=== PATIENT | male | born 1980 | race Caucasian/White ===

== ENCOUNTER 2019-05-20 17:52 | Emergency (ER) | payer OTHER ==
[~2019-05-20] VITALS: Ht 177.8 cm; Wt 96.6 kg
== END 2019-05-20 18:27 | disposition home or self-care (01) ==
LOC: ED 17:52
DX: B34.9 Viral infection, unspecified (principal); F17.200 Nicotine dependence, unspecified, uncomplicated; Z88.0 Allergy status to penicillin
CPT/HCPCS: 99283

== ENCOUNTER 2022-06-07 08:00 | Day surgery (SDC) | payer OTHER ==
[2022-06-01 10:25] VITALS: BP 133/92
[~2022-06-07] VITALS: Ht 177.8 cm; Wt 104.5 kg
[~2022-06-07 08:00] MED LIST: BACLOFEN10 MG PO; CIALIS2.5 MG PO; FLOMAX0.4 MG PO; GABAPENTIN300 MG PO; GILENYA0.5 MG PO
[2022-06-07 08:19] VITALS: BP 129/78
--- NOTE | 2022-06-07 10:37 | NUR ---
06/07/22 1037 Sheets,Mayi 1026 PT ARRIVED TO PACU SNORING AND JAW THRUST USED OFF AND ON TO MAINTAIN AIRWAY. PT NONAROUSABLE. 1033 PT WAKES TO PAINFUL STIMULI AND ROLLS TO SIDE. HOB INCREASED AND SNORING DECREASED. PT REPORTS 2/10 PAIN AND NO NAUSEA. PT EASILY FALLS BACK TO SLEEP. 1035 PT WAKES AND IS REORIENTED TO PACU AND DENIES CONCERNS.
[2022-06-07 10:47] VITALS: BP 118/73
--- NOTE | 2022-06-07 10:58 | NUR ---
1045-PATIENT BACK TO ROOM FROM PACU ON . RECEIVED REPORT FROM ROJELIO ZHU. PATIENT IS AWAKE. RESP EVEN AND UNLABORED. RATES PAIN 2/10. DENIES NAUSEA. COTTON BALLS ARE IN BOTH EARS NO DRAINAGE NOTED. PROVIDED PATIENT WITH WATER AND APPLESAUCE. FAMILY IN ROOM. CALL LIGHT WITHIN REACH.
[2022-06-07 11:48] VITALS: BP 117/67
--- NOTE | 2022-06-07 11:57 | NUR ---
LE 1112-PATIENT UP TO RESTROOM. GAIT STEADY TOLERATED WELL. PATIENT VOIDS. LE 1115-PATIENT AMBULATES BACK TO ROOM. PROVIDED PATEIENT WITH MORE WATER.
--- NOTE | 2022-06-07 11:59 | NUR ---
LE 1130-PATIENT GETTING DRESSED.
--- NOTE | 2022-06-07 11:59 | NUR ---
LE 1148-PATIENT AWAKE AND DRESSED SITTING IN BED WATCHING TV. RESP EVEN AND UNALABORED. RATES PAIN /. DENIES NAUSEA. NO DRAINAGE NOTED IN EARS. LE 1152-PROVIDED PATIENT WITH DISCHARGE INSTRUCTIONS. ALL QUESTIONS ANSWERED. WHEELCHAIR RIDE PROVIED TO FRONT OF HOSPITAL WHERE HIS MOTHER WAS WAITING WITH THE CAR.
--- NOTE | 2022-06-14 10:12 | OR ---
[facility] [address], [place] [address] Signed DATE OF OPERATION: 06/07/2022 SURGEON: Daren Redman MD PREOPERATIVE DIAGNOSES: Chronic ear infections, conductive hearing loss, middle ear effusions, tympanosclerosis. POSTOPERATIVE DIAGNOSES: Chronic ear infections, conductive hearing loss, middle ear effusions, tympanosclerosis. PROCEDURE: Bilateral myringotomy and ventilation tube insertion with T tubes. ANESTHESIA: General LMA, POLICE SERVICE TECHNICIAN, Mic. PREOPERATIVE HISTORY: Patrice is a 42-year-old young man with chronic ear infections, multiple sets of ear tubes, none for several years. He has appearance of extensive tympanosclerosis, conductive hearing loss, flat tympanograms, suspicion of middle ear effusion, and he is taken to the operating room for the above-mentioned procedures. OPERATIVE PROCEDURE AND FINDINGS: After informed consent, the patient was taken to the operating room, placed in the supine position where general LMA anesthesia was induced. The patient and procedure were verified. Left ear was examined with the operating microscope. The eardrum was tip extensively tympanosclerotic with an anterior-inferior monomeric membrane. This incision was made through the anterior portion of the monomeric membrane. A scant serous effusion suctioned from the middle ear space. A T-tube placed in the myringotomy site. Cipro ophthalmic drops applied to the ear canal, cotton ball the meatus. Same procedure, same findings on the right ear. The patient tolerated the procedure well, was awakened, extubated, transported to recovery room in good condition. No complications. BLOOD LOSS: Minimal. SPECIMEN: None. Electronically Signed By: DAREN REDMAN MD 06/14/22 1012 PATIENT NAME: PATRICE SKAGGS OPERATIVE REPORT DATE OF : 84 REPORT #: [id number] PHYSICIAN: DAREN REDMAN MD PCP: MAUREEN VELARDE MD REPORT IS CONFIDENTIAL AND NOT TO BE RELEASED WITHOUT AUTHORIZATION [address] [place] [address] Signed DRAINS: None. Daren Redman MD GC/MODL /[id number] Copies: ~ Electronically Signed By: DAREN REDMAN MD 06/14/22 1012 PATIENT NAME: PATRICE SKAGGS OPERATIVE REPORT DATE OF : 84 REPORT #: [id number] PHYSICIAN: DAREN REDMAN MD PCP: MAUREEN VELARDE MD REPORT IS CONFIDENTIAL AND NOT TO BE RELEASED WITHOUT AUTHORIZATION
== END 2022-06-07 11:52 | disposition home or self-care (01) ==
LOC: DS 08:00 → OPS 08:00 → DS 09:30 → OPS 09:30
PROVIDERS: ATTEND Otolaryngology
PROC: 099500Z Drainage of Right Middle Ear with Drainage Device, Open Approach (ICD-10-PCS; 2022-06-07)
PROC: 099600Z Drainage of Left Middle Ear with Drainage Device, Open Approach (ICD-10-PCS; principal; 2022-06-07 09:30)
DX: H65.23 Chronic serous otitis media, bilateral (principal); H90.2 Conductive hearing loss, unspecified; H74.03 Tympanosclerosis, bilateral; Z88.8 Allergy status to other drugs, medicaments and biological substances
CPT/HCPCS: 00126; J0131; J1885; J2001; J2405; J2704; J3010; J7121

== ENCOUNTER 2022-10-26 13:13 | Emergency (ER) | payer OTHER ==
[~2022-10-26] VITALS: Ht 177.8 cm; Wt 104.5 kg
--- OUTSIDE RECORDS SUMMARY | ~2022-10-26 | XMS | Continuity of Care Document ---
Demographics + + + | Address | [address] | | | [place] [address] | + + + | Preferred Language | Unknown | + + + | Marital Status | Never | + + + | Confucianism Affiliation | Unknown | + + + | Race | Unknown | + + + | Ethnic Group | Unknown | + + + Author + + + | Author | [facility] | + + + | Organization | [facility] | + + + | Address | [address] | | | [place] [address] | + + + | Phone | | + + + Care Team Providers + + + + | [facility] Name | Role | Phone | + + + + Unavailable | Unavailable | + + + + Unavailable | Unavailable | + + + + Unavailable | Unavailable | + + + + Unavailable | Unavailable | + + + + Unavailable | Unavailable | + + + + Unavailable | Unavailable | + + + + Allergies and Intolerances + + + + + + | date | description | facility | reaction | severity | + + + + + + | (no date) | Rituxan 10 | [facility] | (no reaction) | (no severity) | | | MG/ML | [facility] | | | | | Intravenous | | | | | | Concentrate | | | | + + + + + + | (no date) | Penicillin | [facility] | (no reaction) | (no severity) | | [facility] | | | + + + + + + | (no date) | Penicillin | [facility] | (no reaction) | (no severity) | | [facility] | | | + + + + + + | (no date) | Miscellaneous | [facility] | (no reaction) | (no severity) | | | Oral Tablet | [facility] | | | + + + + + + | (no date) | Penicillin | [facility] | (no reaction) | (no severity) | | | [facility] | | | + + + + + + | (no date) | NO ALLERGY | [facility] | (no reaction) | (no severity) | | | INFORMATION ON | [facility] Center | | | | | FILE | Hospital | | | + + + + + + | (no date) | NATALIZUMAB | [facility] | (no reaction) | (no severity) | | | | [facility] | | | | | | Hospital | | | + + + + + + | (no date) | NO KNOWN | [facility] | (no reaction) | (no severity) | | | ALLERGIES | [facility] | | | | | | Hospital | | | + + + + + + | (no date) | Penicillin | [facility] | (no reaction) | (no severity) | | | [facility] | | | + + + + + + Encounters No information. Functional Status No information. Immunizations No information. Medications + + + + | date | description | facility | + + + + | 2022-06-07 00:00 | FINGOLIMOD HCL | [facility] | + + + + | 2021-06-24 00:00 | fingolimod 0.5 MG Oral | [facility] | | | Capsule [Gilenya] | | + + + + | 2021-12-14 00:00 | fingolimod 0.5 MG Oral | [facility] | | | Capsule [[facility]ya] | | + + + + | 2022-01-10 00:00 | fingolimod 0.5 MG Oral | [facility] | | | Capsule [[facility]] | | + + + + | 2022-02-14 00:00 | fingolimod 0.5 MG Oral | [facility] | | | Capsule [[facility]ya] | | + + + + | 2022-03-28 00:00 | fingolimod 0.5 MG Oral | [facility] | | | Capsule [[facility]ya] | | + + + + | 2022-04-21 00:00 | fingolimod 0.5 MG Oral | [facility] | | | Capsule [[facility]enya] | | + + + + | 2021-06-14 00:00 | Tamsulosin HCl 0.4 MG Oral | [facility] | | | Capsule | | + + + + | 2021-07-02 00:00 | Tamsulosin HCl 0.4 MG Oral | [facility] | | | Capsule | | + + + + | 2021-07-08 00:00 | Tamsulosin HCl 0.4 MG Oral | [facility] | | | Capsule | | + + + + | 2022-01-10 00:00 | Tamsulosin HCl 0.4 MG Oral | [facility] | | | Capsule | | + + + + | 2022-07-04 00:00 | Tamsulosin HCl 0.4 MG Oral | [facility] | | | Capsule | | + + + + | 2021-06-24 00:00 | Gilenya 0.5 MG Oral | [facility] | | | Capsule | | + + + + | 2021-12-14 00:00 | Gilenya 0.5 MG Oral | [facility] | | | Capsule | | + + + + | 2022-01-10 00:00 | Gilenya 0.5 MG Oral | [facility] | | | Capsule | | + + + + | 2022-02-14 00:00 | Gilenya 0.5 MG Oral | [facility] | | | Capsule | | + + + + | 2022-03-28 00:00 | Gilenya 0.5 MG Oral | [facility] | | | Capsule | | + + + + | 2022-04-21 00:00 | Gilenya 0.5 MG Oral | [facility] | | | Capsule | | + + + + | 2020-03-03 00:00 | methylprednisolone 1000 mg | [facility] | | | injection | [facility] | + + + + | 2020-03-03 00:00 | solu-medrol 1 gm injection | [facility] | | | | [facility] | + + + + | 2020-04-21 00:00 | 1000 ml sodium chloride 9 | [facility] | | | mg/ml injection | | + + + + | 2020-05-19 00:00 | 1000 ml sodium chloride 9 | [facility] | | | mg/ml injection | | + + + + | 2022-06-07 00:00 | BACLOFEN | [facility] | + + + + | 2022-04-21 00:00 | baclofen 10 MG Oral Tablet | [facility] | | | | | + + + + | 2022-04-21 00:00 | Baclofen 10 MG Oral Tablet | [facility] | | | | | + + + + | 2022-06-07 00:00 | GABAPENTIN | [facility] | + + + + | 2021-07-02 00:00 | gabapentin 300 MG Oral | [facility] | | | Capsule | | + + + + | 2022-05-31 00:00 | gabapentin 300 MG Oral | [facility] | | | Capsule | | + + + + | 2021-07-02 00:00 | Gabapentin 300 MG Oral | [facility] | | | Capsule | | + + + + | 2022-05-31 00:00 | Gabapentin 300 MG Oral | [facility] | | | Capsule | | + + + + | 2020-01-21 00:00 | natalizumab 300 mg in 15 | [facility] | | | ml injection | | + + + + | 2020-01-21 00:00 | natalizumab 300 mg in 15 | [facility] | | | ml injection | | + + + + | 2020-01-21 00:00 | natalizumab 300 mg in 15 | [facility] | | | ml injection | [facility] | + + + + | 2020-01-21 00:00 | tysabri 300 mg per 15 ml | [facility] | | | injection | | + + + + | 2020-01-21 00:00 | tysabri 300 mg per 15 ml | [facility] | | | injection | | + + + + | 2020-01-21 00:00 | tysabri 300 mg per 15 ml | [facility] | | | injection | [facility] | + + + + | 2022-06-07 00:00 | TADALAFIL | [facility] | + + + + | 2021-06-14 00:00 | tamsulosin hydrochloride | [facility] | | | 0.4 MG Oral Capsule | | + + + + | 2021-07-02 00:00 | tamsulosin hydrochloride | [facility] | | | 0.4 MG Oral Capsule | | + + + + | 2021-07-08 00:00 | tamsulosin hydrochloride | [facility] | | | 0.4 MG Oral Capsule | | + + + + | 2022-01-10 00:00 | tamsulosin hydrochloride | [facility] | | | 0.4 MG Oral Capsule | | + + + + | 2022-07-04 00:00 | tamsulosin hydrochloride | [facility] | | | 0.4 MG Oral Capsule | | + + + + | 2022-06-07 00:00 | TAMSULOSIN HCL | [facility] | + + + + Problems + + + + | date | description | facility | + + + + | 2020-01-22 00:00 | multiple sclerosis | [facility] | | | (disorder) | | + + + + | 2020-01-22 00:00 | multiple sclerosis | [facility] | | | (disorder) | | + + + + | 2020-01-22 00:00 | multiple sclerosis | [facility] | | | (disorder) | [facility] | + + + + | 2020-01-22 00:00 | Multiple sclerosis | [facility] | + + + + | 2020-01-22 00:00 | Multiple sclerosis | [facility] | | | | | + + + + | 2020-01-22 00:00 | Multiple sclerosis | [facility] | | | | [facility] | + + + + | 2020-03-03 10:47:29 | Demyelinating diseases of | [facility] | | | the central nervous system | [facility] | | | (G35-G37) | | + + + + | 2020-03-03 10:47:29 | Hemiplegia, unspecified | [facility] | | | affecting left nondominant | [facility] | | | side | | + + + + | 2020-03-03 10:47:29 | Pain in right leg | [facility] | | | | [facility] | + + + + | 2020-03-03 10:47:29 | Pain in left leg | [facility] | | | | [facility] | + + + + | 2020-03-03 10:47:29 | Anesthesia of skin | [facility] | | | | [facility] | + + + + | 2020-03-03 10:47:29 | Paresthesia of skin | [facility] | | | | [facility] | + + + + | 2020-03-23 12:58:32 | Demyelinating diseases of | [facility] | | | the central nervous system | [facility] | | | (G35-G37) | | + + + + | 2020-04-21 00:00 | Demyelinating diseases of | [facility] | | | the central nervous system | [facility] | | | (G35-G37) | | + + + + | 2020-04-21 10:52:59 | Demyelinating diseases of | [facility] | | | the central nervous system | [facility] | | | (G35-G37) | | + + + + | 2020-05-19 12:18:47 | Demyelinating diseases of | [facility] | | | the central nervous system | [facility] | | | (G35-G37) | | + + + + | 2020-06-16 12:09:46 | Demyelinating diseases of | [facility] | | | the central nervous system | [facility] | | | (G35-G37) | | + + + + | 2020-07-14 12:19:49 | Demyelinating diseases of | [facility] | | | the central nervous system | [facility] | | | (G35-G37) | | + + + + | 2020-07-28 13:29:53 | Vitamin D deficiency, | [facility] | | | unspecified | [facility] | + + + + | 2020-07-28 13:29:53 | Demyelinating diseases of | [facility] | | | the central nervous system | [facility] | | | (G35-G37) | | + + + + | 2020-07-28 13:29:53 | Pain in unspecified joint | [facility] | | | | [facility] | + + + + | 2020-07-28 13:29:53 | Anesthesia of skin | [facility] | | | | [facility] | + + + + | 2020-07-28 13:29:53 | Paresthesia of skin | [facility] | | | | [facility] | + + + + | 2020-07-28 13:29:53 | Other fatigue | [facility] | | | | [facility] | + + + + | 2020-07-28 13:29:53 | Encounter for therapeutic | [facility] | | | drug level monitoring | [facility] | + + + + | 2020-07-28 13:29:53 | 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 | | | (disorder) | | + + + + | 2021-07-02 00:00 | MULTIPLE SCLEROSIS | [facility] | | | | | + + + + | 2021-07-02 00:00 | Multiple Sclerosis | [facility] | | | | | + + + + | 2022-06-07 08:00 | ACUTE SEROUS OTITIS MEDIA, | [facility] | | | BILATERAL | | + + + + | 2022-06-07 08:00 | CHRONIC SEROUS OTITIS | [facility] | | | MEDIA, BILATERAL | | + + + + | 2022-06-07 08:00 | TYMPANOSCLEROSIS, | [facility] | | | BILATERAL | | + + + + | 2022-06-07 08:00 | CONDUCTIVE HEARING LOSS, | [facility] | | | UNSPECIFIED | | + + + + | 2022-06-07 08:00 | ALLERGY STATUS TO OTH | [facility] | | | DRUG/MEDS/BIOL SUBST STATUS | | | | | | + + + + Procedures + + + + | date | description | facility | + + + + | 2020-04-21 00:00 | GUIDELINES FOR ORDERING #1 | [facility] | | | - [facility] | | + + + + | 2020-05-19 00:00 | GUIDELINES FOR ORDERING #1 | [facility] | | | - [facility] | | + + + + | 2020-04-21 00:00 | NURSING COMMUNICATION #2 - | [facility] | | | [facility] | | + + + + | 2020-05-19 00:00 | NURSING COMMUNICATION #2 - | [facility] | | | [facility] | | + + + + | 2020-04-21 00:00 | NURSING COMMUNICATION #3 - | [facility] | | | [facility] | | + + + + | 2020-05-19 00:00 | NURSING COMMUNICATION #3 - | [facility] | | | [facility] | | + + + + | 2020-04-21 00:00 | NURSING COMMUNICATION #4 - | [facility] | | | [facility] | | + + + + | 2020-05-19 00:00 | NURSING COMMUNICATION #4 - | [facility] | | | [facility] | | + + + + | 2020-04-21 00:00 | NURSING COMMUNICATION #5 - | [facility] | | | [facility] | | + + + + | 2020-05-19 00:00 | NURSING COMMUNICATION #5 - | [facility] | | | [facility] | | + + + + | 2020-04-21 00:00 | BASIC METABOLIC SET (NA, | [facility] | | | K, CL, TCO2, BUN, CR, GLU, | | | | CA) | | + + + + | 2020-05-19 00:00 | BASIC METABOLIC SET (NA, | [facility] | | | K, CL, TCO2, BUN, CR, GLU, | | | | CA) | | + + + + | 2020-04-21 00:00 | CBC WITH AUTO DIFF - OLP | [facility] | + + + + | 2020-05-19 00:00 | CBC WITH AUTO DIFF - OLP | [facility] | + + + + | 2020-04-21 00:00 | BASIC METABOLIC SET - OLP | [facility] | + + + + | 2020-05-19 00:00 | BASIC METABOLIC SET - OLP | [facility] | + + + + | 2020-04-21 00:00 | CBC W/ DIFF, REFLEX | [facility] | + + + + | 2020-05-19 00:00 | CBC W/ DIFF, REFLEX | [facility] | + + + + | 2020-04-21 00:00 | NURSING COMMUNICATION - | [facility] | | | HYPERSENSITIVITY/INFUSION | | | | REACTION #5 - [facility] | | + + + + | 2020-05-19 00:00 | NURSING COMMUNICATION - | [facility] | | | HYPERSENSITIVITY/INFUSION | | | | REACTION #5 - [facility] | | + + + + Results/Labs +--------+--------+ +---------+--------+---------+ | test | date | facility | value | unit | notes | +--------+--------+ +---------+--------+---------+ + + | Result panel 1 | + + + + + + + + + | No Results | (no date) | [facility] | No Results | (missing) | (missing) | [facility] | | | | + + + + + + + + + | Result panel 2 | + + + + + + + + + | No Results | (no date) | [facility] | No Results | (missing) | (missing) | | | [facility] | | | | | [facility] | | | | + + + + + + + + + | Result panel 3 | + + + + + + + + + | No Results | (no date) | [facility] | No Results | (missing) | (missing) | | [facility] | | | [facility] | | | | + + + + + + + + + | Result panel 4 | + + + + + + + + + | No Results | (no date) | [facility] | No Results | (missing) | (missing) | | | | [facility] | | | | | | | [facility] [place] | | | | + + + + + + + + + | Result panel 5 | + + + + + + + + + | Specimen | (no date) | [facility] | (missing) | (missing) | (missing) | | collection | | Cancer | | | | | (procedure) | | Center | | | | + + + + + + + + + | Result panel 6 | + + + + + + + + + | Specimen | (no date) | [facility] | (missing) | (missing) | (missing) | | collection | | Cancer | | | | | (procedure) | | Center | | | | + + + + + + + + + | Result panel 7 | + + + + + + + + + | Specimen | (no date) | [facility] | (missing) | (missing) | (missing) | | collection | | Cancer | | | | | (procedure) | | Center | | | | + + + + + + + + + | Result panel 8 | + + + + + + + + + | Specimen | (no date) | [facility] | (missing) | (missing) | (missing) | | collection | | Cancer | | | | | (procedure) | | Center | | | | + + + + + + + + + | Result panel 9 | + + + + + +--------+ + + | | 2020-04-21 | [facility] | 0.05 | (missing) | (missing) | | (unavailable | 20:35 | Cancer | | | | | ) | | Center | | | | + + + +--------+ + + + + | Result panel 10 | + + + + + +--------+ + + | | 2020-04-21 | [facility] | 0.03 | (missing) | (missing) | | (unavailable | 20:35 | Cancer | | | | | ) | | Center | | | | + + + +--------+ + + + + | Result panel 11 | + + + + + + + + + | | 2020-04-21 | [facility] | Abnormal | (missing) | (missing) | | (unavailable | 20:35 | Cancer | | | | | ) | | Center | | | | + + + + + + + + + | Result panel 12 | + + + + + +--------+ + + | | 2020-04-21 | [facility] | 6.48 | (missing) | (missing) | | (unavailable | 20:35 | Cancer | | | | | ) | | Center | | | | + + + +--------+ + + + + | Result panel 13 | + + + + + +--------+ + + | | 2020-04-21 | [facility] | 5.39 | (missing) | (missing) | | (unavailable | 20:35 | Cancer | | | | | ) | | Center | | | | + + + +--------+ + + + + | Result panel 14 | + + + + + +--------+--------+ + | | 2020-04-21 | [facility] | 16.1 | g/dL | (missing) | | (unavailable | 20:35 | Cancer | | | | | ) | | Center | | | | + + + +--------+--------+ + + + | Result panel 15 | + + + + + +--------+-----+ + | | 2020-04-21 | [facility] | 46.8 | % | (missing) | | (unavailable | 20:35 | Cancer | | | | | ) | | Center | | | | + + + +--------+-----+ + + + | Result panel 16 | + + + + + +--------+------+ + | | 2020-04-21 | [facility] | 86.8 | fL | (missing) | | (unavailable | 20:35 | Cancer | | | | | ) | | Center | | | | + + + +--------+------+ + + + | Result panel 17 | + + + + + +--------+------+ + | | 2020-04-21 | [facility] | 29.9 | pg | (missing) | | (unavailable | 20:35 | Cancer | | | | | ) | | Center | | | | + + + +--------+------+ + + + | Result panel 18 | + + + + + +--------+--------+ + | | 2020-04-21 | [facility] | 34.4 | g/dL | (missing) | | (unavailable | 20:35 | Cancer | | | | | ) | | Center | | | | + + + +--------+--------+ + + + | Result panel 19 | + + + + + +--------+-----+ + | | 2020-04-21 | [facility] | 12.7 | % | (missing) | | (unavailable | 20:35 | Cancer | | | | | ) | | Center | | | | + + + +--------+-----+ + + + | Result panel 20 | + + + + + +-------+ + + | | 2020-04-21 | [facility] | 211 | (missing) | (missing) | | (unavailable | 20:35 | Cancer | | | | | ) | | Center | | | | + + + +-------+ + + + + | Result panel 21 | + + + + + +--------+------+ + | | 2020-04-21 | [facility] | 12.1 | fL | (missing) | | (unavailable | 20:35 | Cancer | | | | | ) | | Center | | | | + + + +--------+------+ + + + | Result panel 22 | + + + + + +-------+-----+ + | | 2020-04-21 | [facility] | 0.0 | % | (missing) | | (unavailable | 20:35 | Cancer | | | | | ) | | Center | | | | + + + +-------+-----+ + + + | Result panel 23 | + + + + + +--------+ + + | | 2020-04-21 | [facility] | 0.00 | (missing) | (missing) | | (unavailable | 20:35 | Cancer | | | | | ) | | Center | | | | + + + +--------+ + + + + | Result panel 24 | + + + + + +--------+-----+ + | | 2020-04-21 | [facility] | 64.3 | % | (missing) | | (unavailable | 20:35 | Cancer | | | | | ) | | Center | | | | + + + +--------+-----+ + + + | Result panel 25 | + + + + + +--------+-----+ + | | 2020-04-21 | [facility] | 24.2 | % | (missing) | | (unavailable | 20:35 | Cancer | | | | | ) | | Center | | | | + + + +--------+-----+ + + + | Result panel 26 | + + + + + +-------+-----+ + | | 2020-04-21 | [facility] | 8.0 | % | (missing) | | (unavailable | 20:35 | Cancer | | | | | ) | | Center | | | | + + + +-------+-----+ + + + | Result panel 27 | + + + + + +-------+-----+ + | | 2020-04-21 | [facility] | 2.2 | % | (missing) | | (unavailable | 20:35 | Cancer | | | | | ) | | Center | | | | + + + +-------+-----+ + + + | Result panel 28 | + + + + + +-------+-----+ + | | 2020-04-21 | [facility] | 0.8 | % | (missing) | | (unavailable | 20:35 | Cancer | | | | | ) | | Center | | | | + + + +-------+-----+ + + + | Result panel 29 | + + + + + +-------+-----+ + | | 2020-04-21 | [facility] | 0.5 | % | (missing) | | (unavailable | 20:35 | Cancer | | | | | ) | | Center | | | | + + + +-------+-----+ + + + | Result panel 30 | + + + + + +--------+ + + | | 2020-04-21 | [facility] | 4.17 | (missing) | (missing) | | (unavailable | 20:35 | Cancer | | | | | ) | | Center | | | | + + + +--------+ + + + + | Result panel 31 | + + + + + +--------+ + + | | 2020-04-21 | [facility] | 1.57 | (missing) | (missing) | | (unavailable | 20:35 | Cancer | | | | | ) | | Center | | | | + + + +--------+ + + + + | Result panel 32 | + + + + + +--------+ + + | | 2020-04-21 | [facility] | 0.52 | (missing) | (missing) | | (unavailable | 20:35 | Cancer | | | | | ) | | Center | | | | + + + +--------+ + + + + | Result panel 33 | + + + + + +--------+ + + | | 2020-04-21 | [facility] | 0.14 | (missing) | (missing) | | (unavailable | 20:35 | Cancer | | | | | ) | | Center | | | | + + + +--------+ + + + + | Result panel 34 | + + + + + +-------+---------+ + | | 2020-04-21 | [facility] | 106 | mg/dL | (missing) | | (unavailable | 20:48 | Cancer | | | | | ) | | Center | | | | + + + +-------+---------+ + + + | Result panel 35 | + + + + + +------+---------+ + | | 2020-04-21 | [facility] | 10 | mg/dL | (missing) | | (unavailable | 20:48 | Cancer | | | | | ) | | Center | | | | + + + +------+---------+ + + + | Result panel 36 | + + + + + +-------+---------+ + | | 2020-04-21 | [facility] | 0.7 | mg/dL | (missing) | | (unavailable | 20:48 | Cancer | | | | | ) | | Center | | | | + + + +-------+---------+ + + + | Result panel 37 | + + + + + +-------+ + + | | 2020-04-21 | [facility] | 143 | mmol/L | (missing) | | (unavailable | 20:48 | Cancer | | | | | ) | | Center | | | | + + + +-------+ + + + + | Result panel 38 | + + + + + +-------+ + + | | 2020-04-21 | [facility] | 4.1 | mmol/L | (missing) | | (unavailable | 20:48 | Cancer | | | | | ) | | Center | | | | + + + +-------+ + + + + | Result panel 39 | + + + + + +-------+ + + | | 2020-04-21 | [facility] | 105 | mmol/L | (missing) | | (unavailable | 20:48 | Cancer | | | | | ) | | Center | | | | + + + +-------+ + + + + | Result panel 40 | + + + + + +------+ + + | | 2020-04-21 | [facility] | 25 | mmol/L | (missing) | | (unavailable | 20:48 | Cancer | | | | | ) | | Center | | | | + + + +------+ + + + + | Result panel 41 | + + + + + +-------+---------+ + | | 2020-04-21 | [facility] | 9.1 | mg/dL | (missing) | | (unavailable | 20:48 | Cancer | | | | | ) | | Center | | | | + + + +-------+---------+ + + + | Result panel 42 | + + + + + +------+ + + | | 2020-04-21 | [facility] | 14 | (missing) | (missing) | | (unavailable | 20:48 | Cancer | | | | | ) | | Center | | | | + + + +------+ + + + + | Result panel 43 | + + + + + +-------+ + + | | 2020-04-21 | [facility] | >60 | (missing) | (missing) | | (unavailable | 20:48 | Cancer | | | | | ) | | Center | | | | + + + +-------+ + + + + | Result panel 44 | + + + + + +-------+ + + | | 2020-04-21 | [facility] | >60 | (missing) | (missing) | | (unavailable | 20:48 | Cancer | | | | | ) | | Center | | | | + + + +-------+ + + + + | Result panel 45 | + + + + + +------+ + + | | 2020-04-21 | [facility] | 13 | mmol/L | (missing) | | (unavailable | 20:48 | Cancer | | | | | ) | | Center | | | | + + + +------+ + + + + | Result panel 46 | + + + + + +------+ + + | | 2020-04-21 | [facility] | No | (missing) | (missing) | | (unavailable | 20:48 | Cancer | | | | | ) | | Center | | | | + + + +------+ + + + + | Result panel 47 | + + + + + + + + + | | 2020-04-21 | [facility] | Abnormal | (missing) | (missing) | | (unavailable | 20:48 | [facility] | | | | | ) | | Center | | | | + + + + + + + + + | Result panel 48 | + + + + + +--------+ + + | | 2020-05-19 | [facility] | 7.48 | (missing) | (missing) | | (unavailable | 20:35 | [facility] | | | | ) | | Center | | | | + + + +--------+ + + + + | Result panel 49 | + + + + + +--------+ + + | | 2020-05-19 | [facility] | 5.08 | (missing) | (missing) | | (unavailable | 20:35 | [facility] | | ) | | Center | | | | + + + +--------+ + + + + | Result panel 50 | + + + + + +--------+--------+ + | | 2020-05-19 | [facility] | 15.4 | g/dL | (missing) | | (unavailable | 20:35 | [facility] | [facility] | | ) | | Center | | | | + + + +--------+--------+ + + + | Result panel 51 | + + + + + +--------+-----+ + | | 2020-05-19 | [facility] | 44.1 | % | (missing) | | (unavailable | 20:35 | [facility] | | | | | ) | | Center | | | | + + + +--------+-----+ + + + | Result panel 52 | + + + + + +--------+------+ + | | 2020-05-19 | [facility] | 86.8 | fL | (missing) | | (unavailable | 20:35 | [facility] | | | | | ) | | Center | | | | + + + +--------+------+ + + + | Result panel 53 | + + + + + +--------+------+ + | | 2020-05-19 | [facility] | 30.3 | pg | (missing) | | (unavailable | 20:35 | [facility] | | | | | ) | | Center | | | | + + + +--------+------+ + + + | Result panel 54 | + + + + + +--------+--------+ + | | 2020-05-19 | [facility] | 34.9 | g/dL | (missing) | | (unavailable | 20:35 [facility] | | | | + + + +--------+--------+ + + + | Result panel 55 | + + + + + +--------+-----+ + | | 2020-05-19 | [facility] | 13.0 | % | (missing) | | (unavailable | 20:35 | [facility] | | | | + + + +--------+-----+ + + + | Result panel 56 | + + + + + +-------+ + + | | 2020-05-19 | [facility] | 238 | (missing) | (missing) | | (unavailable | 20:35 [facility] | | | | + + + +-------+ + + + + | Result panel 57 | + + + + + +--------+------+ + | | 2020-05-19 | [facility] | 11.7 | fL | (missing) | | (unavailable | 20:35 [facility] | | | | + + + +--------+------+ + + + | Result panel 58 | + + + + + +-------+-----+ + | | 2020-05-19 | [facility] | 0.0 | % | (missing) | | (unavailable | 20:35 [facility] | | | | + + + +-------+-----+ + + + | Result panel 59 | + + + + + +--------+ + + | | 2020-05-19 | [facility] | 0.00 | (missing) | (missing) | | (unavailable | 20:35 [facility] | | | | + + + +--------+ + + + + | Result panel 60 | + + + + + +--------+-----+ + | | 2020-05-19 | [facility] | 68.8 | % | (missing) | | (unavailable | 20:35 [facility] | | | | + + + +--------+-----+ + + + | Result panel 61 | + + + + + +--------+-----+ + | | 2020-05-19 | [facility] | 20.5 | % | (missing) | | (unavailable | 20:35 [facility] | | | | + + + +--------+-----+ + + + | Result panel 62 | + + + + + +-------+-----+ + | | 2020-05-19 | [facility] | 7.5 | % | (missing) | | (unavailable | 20:35 [facility] | | | | + + + +-------+-----+ + + + | Result panel 63 | + + + + + +-------+-----+ + | | 2020-05-19 | [facility] | 2.3 | % | (missing) | | (unavailable | 20:35 [facility] | | | | + + + +-------+-----+ + + + | Result panel 64 | + + + + + +-------+-----+ + | | 2020-05-19 | [facility] | 0.4 | % | (missing) | | (unavailable | 20:35 [facility] | | | | + + + +-------+-----+ + + + | Result panel 65 | + + + + + +-------+-----+ + | | 2020-05-19 | [facility] | 0.5 | % | (missing) | | (unavailable | 20:35 [facility] | | | | + + + +-------+-----+ + + + | Result panel 66 | + + + + + +--------+ + + | | 2020-05-19 | [facility] | 5.15 | (missing) | (missing) | | (unavailable | 20:35 [facility] | | | | + + + +--------+ + + + + | Result panel 67 | + + + + + +--------+ + + | | 2020-05-19 | [facility] | 1.53 | (missing) | (missing) | | (unavailable | 20:35 [facility] | | | | + + + +--------+ + + + + | Result panel 68 | + + + + + +--------+ + + | | 2020-05-19 | [facility] | 0.56 | (missing) | (missing) | | (unavailable | 20:35 [facility] | | | | + + + +--------+ + + + + | Result panel 69 | + + + + + +--------+ + + | | 2020-05-19 | [facility] | 0.17 | (missing) | (missing) | | (unavailable | 20:35 [facility] | | | | + + + +--------+ + + + + | Result panel 70 | + + + + + +--------+ + + | | 2020-05-19 | [facility] | 0.03 | (missing) | (missing) | | (unavailable | 20:35 [facility] | | | | + + + +--------+ + + + + | Result panel 71 | + + + + + +--------+ + + | | 2020-05-19 | [facility] | 0.04 | (missing) | (missing) | | (unavailable | 20:35 [facility] | | | | + + + +--------+ + + + + | Result panel 72 | + + + + + + + + + | | 2020-05-19 | [facility] | Abnormal | (missing) | (missing) | | (unavailable | 20:35 [facility] | | | | + + + + + + + + + | Result panel 73 | + + + + + +-------+---------+ + | | 2020-05-19 | [facility] | 131 | mg/dL | (missing) | | (unavailable | 20:59 | [facility] | | | | + + + +-------+---------+ + + + | Result panel 74 | + + + + + +------+---------+ + | | 2020-05-19 | [facility] | 12 | mg/dL | (missing) | | (unavailable | 20:59 [facility] | | | | + + + +------+---------+ + + + | Result panel 75 | + + + + + +-------+---------+ + | | 2020-05-19 | [facility] | 0.7 | mg/dL | (missing) | | (unavailable | 20:59 [facility] | | | | + + + +-------+---------+ + + + | Result panel 76 | + + + + + +-------+ + + | | 2020-05-19 | [facility] | 140 | mmol/L | (missing) | | (unavailable | 20:59 [facility] | | | | + + + +-------+ + + + + | Result panel 77 | + + + + + +-------+ + + | | 2020-05-19 | [facility] | 3.5 | mmol/L | (missing) | | (unavailable | 20:59 [facility] | | | | + + + +-------+ + + + + | Result panel 78 | + + + + + +-------+ + + | | 2020-05-19 | [facility] | 105 | mmol/L | (missing) | | (unavailable | 20:59 | [facility] | | | | + + + +-------+ + + + + | Result panel 79 | + + + + + +------+ + + | | 2020-05-19 | [facility] | 26 | mmol/L | (missing) | | (unavailable | 20:59 [facility] | | | | + + + +------+ + + + + | Result panel 80 | + + + + + +-------+---------+ + | | 2020-05-19 | [facility] | 9.5 | mg/dL | (missing) | | (unavailable | 20:59 [facility] | | | | + + + +-------+---------+ + + + | Result panel 81 | + + + + + +------+ + + | | 2020-05-19 | [facility] | 17 | (missing) | (missing) | | (unavailable | 20:59 [facility] | | | | + + + +------+ + + + + | Result panel 82 | + + + + + +-------+ + + | | 2020-05-19 | [facility] | >60 | (missing) | (missing) | | (unavailable | 20:59 [facility] | | | | + + + +-------+ + + + + | Result panel 83 | + + + + + +-------+ + + | | 2020-05-19 | [facility] | >60 | (missing) | (missing) | | (unavailable | 20:59 [facility] | | | | + + + +-------+ + + + + | Result panel 84 | + + + + + +-----+ + + | | 2020-05-19 | [facility] | 9 | mmol/L | (missing) | | (unavailable | 20:59 | [facility] | | | | + + + +-----+ + + + + | Result panel 85 | + + + + + + + + + | | 2020-05-19 | [facility] | Unknown | (missing) | (missing) | | (unavailable | 20:59 | [facility] | | | | + + + + + + + + + | Result panel 86 | + + + + + + + + + | | 2020-05-19 | [facility] | Abnormal | (missing) | (missing) | | (unavailable | 20:59 [facility] | [facility] | | | | + + + + + + + + + | Result panel 87 | + + + + + +--------+ + + | nRBC/100 | 2020-07-14 | [facility] | 0.0 | % | (missing) | | WBC Bld | | [facility] | | | | | Auto-Rto | | [facility] | | | | + + + +--------+ + + | nRBC # Bld | 2020-07-14 | [facility] | 0.00 | k/cu mm | (missing) | | Auto | | [facility] | | | | | | | , [facility] | | | | + + + +--------+ + + | Imm | 2020-07-14 | [facility] | 0.04 | k/cu mm | (missing) | | Granulocytes | | MEDICAL | | | | | # Bld Auto | | , [facility] | | | | + + + +--------+ + + | Basophils # | 2020-07-14 | [facility] | 0.04 | k/cu mm | (missing) | | Bld Auto | | [facility] | | | | | | | [facility] | | | | + + + +--------+ + + | Eosinophil | 2020-07-14 | [facility] | 0.22 | k/cu mm | (missing) | | # Bld Auto | | [facility] | | | | | | | , [facility] | | | | + + + +--------+ + + | | 2020-07-14 | [facility] | 0.5 | % | (missing) | | Basophils/le | | MEDICAL | | | | | uk NFr Bld | | , [facility] | | | | | Auto | | | | | | + + + +--------+ + + | Imm | 2020-07-14 | [facility] | 0.5 | % | (missing) | | Granulocytes | | MEDICAL | | | | | /leuk NFr | | , [facility] | | | | | Bld Auto | | | | | | + + + +--------+ + + | Monocytes # | 2020-07-14 | [facility] | 0.78 | k/cu mm | (missing) | | Bld Auto | | MED[facility] | | | | | | | , [facility] | | | | + + + +--------+ + + | Lymphocytes | 2020-07-14 | [facility] | 1.24 | k/cu mm | (missing) | | # Bld Auto | | [facility] | | | | | | | , [facility] | | | | + + + +--------+ + + | PMV Bld | 2020-07-14 | [facility] | 11.1 | fl | (missing) | | Auto | | [facility] | | | | | | | [facility] | | | | + + + +--------+ + + | RDW RBC | 2020-07-14 | [facility] | 12.9 | % | (missing) | | Auto-Rto | | MED[facility] | | | | | | | [facility] | | | | + + + +--------+ + + | | 2020-07-14 | [facility] | 14.4 | % | (missing) | | Lymphocytes/ | | MEDICAL | | | | | leuk NFr Bld | | [facility] | | | | | Auto | | | | | | + + + +--------+ + + | Hgb | 2020-07-14 | [facility] | 16.6 | g/dl | (missing) | | Bld-mCnc | | [facility] | | | | | | | [facility] | | | | + + + +--------+ + + | | 2020-07-14 | [facility] | 2.5 | % | (missing) | | Eosinophil/l | | MEDICAL | | | | | euk NFr Bld | | [facility] | | | | | Auto | | | | | | + + + +--------+ + + | Platelet # | 2020-07-14 | [facility] | 207 | k/cu mm | (missing) | | Bld Auto | | MEDICAL | | | | | | | , [facility] | | | | + + + +--------+ + + | MCH RBC Qn | 2020-07-14 | [facility] | 29.9 | pg | (missing) | | Auto | | MED[facility] | | | | | | | [facility] | | | | + + + +--------+ + + | MCHC RBC | 2020-07-14 | [facility] | 34.9 | g/dl | (missing) | | Auto-mCnc | | MEDICAL | | | | | | | [facility] | | | | + + + +--------+ + + | Hct VFr Bld | 2020-07-14 | [facility] | 47.6 | % | (missing) | | Auto | | MED[facility] | | | | | | | [facility] | | | | + + + +--------+ + + | RBC # Bld | 2020-07-14 | [facility] | 5.55 | m/cu mm | (missing) | | Auto | | MEDICAL | | | | | | | [facility] | | | | + + + +--------+ + + | Neutrophils | 2020-07-14 | [facility] | 6.32 | k/cu mm | (missing) | | # Bld Auto | | MED[facility] | | | | | | | [facility] | | | | + + + +--------+ + + | | 2020-07-14 | [facility] | 73.1 | % | (missing) | | Neutrophils/ | | MEDICAL | | | | | leuk NFr Bld | | [facility] | | | | | Auto | | | | | | + + + +--------+ + + | WBC # Bld | 2020-07-14 | [facility] | 8.64 | k/cu mm | (missing) | | Auto | | MEDICAL | | | | | | | , [facility] | | | | + + + +--------+ + + | MCV RBC | 2020-07-14 | [facility] | 85.8 | fl | (missing) | | Auto | | MEDICAL | | | | | | | [facility] | | | | + + + +--------+ + + | | 2020-07-14 | [facility] | 9.0 | % | (missing) | | Monocytes/le | | MEDICAL | | | | | uk NFr Bld | | [facility] | | | | | Auto | | | | | | + + + +--------+ + + + + | Result panel 88 | + + + + + + + + + | GFR/BSA | 2020-07-14 | [facility] | >60 | ml/min | (missing) | | pr.non blk | 12::47 | MEDICAL | | | | | SerPlBld | | [facility] | | | | | MDRD-ArV | | | | | | + + + + + + + | GFR/BSA | 2020-07-14 | [facility] | >60 | ml/min | (missing) | | pred.black | 12:30:47 | MEDICAL | | | | | SerPlBld | | [facility] | | | | | MDRD-ArVRat | | | | | | + + + + + + + | Creat | 2020-07-14 | [facility] | 0.8 | mg/dl | (missing) | | SerPl-mCnc | 12:30:47 | MEDICAL | | | | | | | [facility] | | | | + + + + + + + | Anion Gap | 2020-07-14 | [facility] | 11 | mmol/l | (missing) | | SerPl-sCnc | 12:30:47 | MEDICAL | | | | | | | [facility] | | | | + + + + + + + | Chloride | 2020-07-14 | [facility] | 110 | mmol/l | (missing) | | SerPl-sCnc | 12:30:47 | MEDICAL | | | | | | | [facility] | | | | + + + + + + + | Glucose | 2020-07-14 | [facility] | 121 | mg/dl | (missing) | | SerPl-mCnc | 12:30:47 | MEDICAL | | | | | | | [facility] | | | | + + + + + + + | BUN | 2020-07-14 | [facility] | 14 | mg/dl | (missing) | | SerPl-mCnc | :30:47 | MEDICAL | | | | | | | [facility] | | | | + + + + + + + | Sodium | 2020-07-14 | [facility] | 144 | mmol/l | (missing) | | SerPl-sCnc | ::47 | MEDICAL | | | | | | | [facility] | | | | + + + + + + + | BUN/Creat | 2020-07-14 | [facility] | 18 | na | (missing) | | SerPl | :30:47 | MEDICAL | | | | | | | [facility] | | | | + + + + + + + | HCO3 | 2020-07-14 | [facility] | 23 | mmol/l | (missing) | | Plas-sCnc | 12:30:47 | MEDICAL | | | | | | | [facility] | | | | + + + + + + + | Potassium | 2020-07-14 | [facility] | 4.0 | mmol/l | (missing) | | SerPl-sCnc | 12:30:47 | MEDICAL | | | | | | | [facility] | | | | + + + + + + + | Calcium | 2020-07-14 | [facility] | 9.3 | mg/dl | (missing) | | SerPl-mCnc | 12:30:47 | MEDICAL | | | | | | | [facility] | | | | + + + + + + + | Fasting | 2020-07-14 | [facility] | Unknown | (missing) | (missing) | | status | 12:30:47 | MEDICAL | | | | | Patient Ql | | [facility] | | | | | Reported | | | | | | + + + + + + + + + | Result panel 89 | + + + + + +--------+ + + | nRBC/100 | 2020-07-28 | [facility] | 0.0 | % | (missing) | | WBC Bld | | MEDICAL | | | | | Auto-Rto | | [facility] | | | | + + + +--------+ + + | nRBC # Bld | 2020-07-28 | [facility] | 0.00 | k/cu mm | (missing) | | Auto | | MEDICAL | | | | | | | [facility] | | | | + + + +--------+ + + | Imm | 2020-07-28 | [facility] | 0.04 | k/cu mm | (missing) | | Granulocytes | | MEDICAL | | | | | # Bld Auto | | [facility] | | | | + + + +--------+ + + | Basophils # | 2020-07-28 | [facility] | 0.06 | k/cu mm | (missing) | | Bld Auto | | MEDICAL | | | | | | | [facility] | | | | + + + +--------+ + + | Eosinophil | 2020-07-28 | [facility] | 0.22 | k/cu mm | (missing) | | # Bld Auto | | MEDICAL | | | | | | | [facility] | | | | + + + +--------+ + + | Imm | 2020-07-28 | [facility] | 0.4 | % | (missing) | | Granulocytes | | MEDICAL | | | | | /leuk NFr | | , [facility] | | | | | Bld Auto | | | | | | + + + +--------+ + + | Monocytes # | 2020-07-28 | [facility] | 0.68 | k/cu mm | (missing) | | Bld Auto | | MEDICAL | | | | | | | [facility] | | | | + + + +--------+ + + | | 2020-07-28 | [facility] | 0.7 | % | (missing) | | Basophils/le | | MEDICAL | | | | | uk NFr Bld | | [facility] | | | | | Auto | | | | | | + + + +--------+ + + | Lymphocytes | 2020-07-28 | [facility] | 1.74 | k/cu mm | (missing) | | # Bld Auto | | MEDICAL | | | | | | | [facility] | | | | + + + +--------+ + + | PMV Bld | 2020-07-28 | [facility] | 11.5 | fl | (missing) | | Auto | | MEDICAL | | | | | | | [facility] | | | | + + + +--------+ + + | RDW RBC | 2020-07-28 | [facility] | 12.6 | % | (missing) | | Auto-Rto | | MEDICAL | | | | | | | [facility] | | | | + + + +--------+ + + | Hgb | 2020-07-28 | [facility] | 15.9 | g/dl | (missing) | | Bld-mCnc | | MEDICAL | | | | | | | [facility] | | | | + + + +--------+ + + | | 2020-07-28 | [facility] | 19.5 | % | (missing) | | Lymphocytes/ | | MEDICAL | | | | | leuk NFr Bld | | [facility] | | | | | Auto | | | | | | + + + +--------+ + + | | 2020-07-28 | [facility] | 2.5 | % | (missing) | | Eosinophil/l | | MEDICAL | | | | | euk NFr Bld | | [facility] | | | | | Auto | | | | | | + + + +--------+ + + | Platelet # | 2020-07-28 | [facility] | 237 | k/cu mm | (missing) | | Bld Auto | | MEDICAL | | | | | | | [facility] | | | | + + + +--------+ + + | MCH RBC Qn | 2020-07-28 | [facility] | 29.6 | pg | (missing) | | Auto | | MEDICAL | | | | | | | [facility] | | | | + + + +--------+ + + | MCHC RBC | 2020-07-28 | [facility] | 33.8 | g/dl | (missing) | | Auto-mCnc | | MEDICAL | | | | | | | [facility] | | | | + + + +--------+ + + | Hct VFr Bld | 2020-07-28 | [facility] | 47.0 | % | (missing) | | Auto | | MEDICAL | | | | | | | [facility] | | | | + + + +--------+ + + | RBC # Bld | 2020-07-28 | [facility] | 5.37 | m/cu mm | (missing) | | Auto | | MEDICAL | | | | | | | [facility] | | | | + + + +--------+ + + | Neutrophils | 2020-07-28 | [facility] | 6.20 | k/cu mm | (missing) | | # Bld Auto | | MEDICAL | | | | | | | [facility] | | | | + + + +--------+ + + | | 2020-07-28 | [facility] | 69.3 | % | (missing) | | Neutrophils/ | | MEDICAL | | | | | leuk NFr Bld | | [facility] | | | | | Auto | | | | | | + + + +--------+ + + | | 2020-07-28 | [facility] | 7.6 | % | (missing) | | Monocytes/le | | MEDICAL | | | | | uk NFr Bld | | , [facility] | | | | | Auto | | | | | | + + + +--------+ + + | WBC # Bld | 2020-07-28 | [facility] | 8.94 | k/cu mm | (missing) | | Auto | | MEDICAL | | | | | | | , [facility] | | | | + + + +--------+ + + | MCV RBC | 2020-07-28 | [facility] | 87.5 | fl | (missing) | | Auto | | MEDICAL | | | | | | | [facility] | | | | + + + +--------+ + + + + | Result panel 90 | + + + + + +---------+---------+ + | Vit D+metab | 2020-07-28 | [facility] | 32.64 | ng/ml | (missing) | | SerPl-mCnc | 14:22:29 | MEDICAL | | | | | | | [facility] | | | | + + + +---------+---------+ + + + | Result panel 91 | + + + + + +-------+ + + | | 2022-06-01 | [facility] | 211 | (missing) | (missing) | | (unavailable | [facility]07 [facility] | | | | + + + +-------+ + + + + | Result panel 92 | + + + + + +--------+ + + | | 2022-06-01 | [facility] | 82.4 | (missing) | (missing) | | (unavailable | [facility] | | | | + + + +--------+ + + + + | Result panel 93 | + + + + + +-------+ + + | | 2022-06-01 | [facility] | 4.8 | (missing) | (missing) | | (unavailable | [facility] | | | | + + + +-------+ + + + + | Result panel 94 | + + + + + +--------+ + + | | 2022-06-01 | [facility] | 10.1 | (missing) | (missing) | | (unavailable | [facility] | | | + + + +--------+ + + + + | Result panel 95 | + + + + + +-------+ + + | | 2022-06-01 | [facility] | 2.4 | (missing) | (missing) | | (unavailable | [facility] | | | + + + +-------+ + + + + | Result panel 96 | + + + + + +-------+ + + | | 2022-06-01 | [facility] | 0.3 | (missing) | (missing) | | (unavailable | [facility] | | | + + + +-------+ + + + + | Result panel 97 | + + + + + +-------+---------+ + | | 2022-06-01 | [facility] | 104 | mg/dL | (missing) | | (unavailable | [facility] | | | + + + +-------+---------+ + + + | Result panel 98 | + + + + + +------+---------+ + | | 2022-06-01 | [facility] | 14 | mg/dL | (missing) | | (unavailable | [facility] | | | + + + +------+---------+ + + + | Result panel 99 | + + + + + +--------+---------+ + | | 2022-06-01 | [facility] | 0.87 | mg/dL | (missing) | | (unavailable | [facility] | | | + + + +--------+---------+ + + + | Result panel 100 | + + + + + +-------+ + + | | 2022-06-01 | [facility] | 112 | (missing) | (missing) | | (unavailable | [facility] | | | + + + +-------+ + + + + | Result panel 101 | + + + + + +-------+ + + | | 2022-06-01 | [facility] | 5.8 | (missing) | (missing) | | (unavailable | [facility] | | | + + + +-------+ + + + + | Result panel 102 | + + + + + +---------+ + + | | 2022-06-01 | [facility] | 16.09 | (missing) | (missing) | | (unavailable | [facility] | | | + + + +---------+ + + + + | Result panel 103 | + + + + + +-------+ + + | | 2022-06-01 | [facility] | 141 | (missing) | (missing) | | (unavailable | [facility] | | | + + + +-------+ + + + + | Result panel 104 | + + + + + +-------+ + + | | 2022-06-01 | [facility] | 4.1 | (missing) | (missing) | | (unavailable | [facility] | | | + + + +-------+ + + + + | Result panel 105 | + + + + + +-------+ + + | | 2022-06-01 | [facility] | 103 | (missing) | (missing) | | (unavailable | [facility] | | | + + + +-------+ + + + + | Result panel 106 | + + + + + +------+ + + | | 2022-06-01 | [facility] | 31 | (missing) | (missing) | | (unavailable | [facility] | | | + + + +------+ + + + + | Result panel 107 | + + + + + +--------+ + + | | 2022-06-01 | [facility] | 11.1 | (missing) | (missing) | | (unavailable | [facility] | | | + + + +--------+ + + + + | Result panel 108 | + + + + + +-------+---------+ + | | 2022-06-01 | [facility] | 9.0 | mg/dL | (missing) | | (unavailable | [facility] | | | + + + +-------+---------+ + + + | Result panel 109 | + + + + + +-------+ + + | | 2022-06-01 | [facility] | 7.2 | (missing) | (missing) | | (unavailable | [facility] | | | + + + +-------+ + + + + | Result panel 110 | + + + + + +-------+ + + | | 2022-06-01 | [facility] | 4.2 | (missing) | (missing) | | (unavailable | [facility] | | | + + + +-------+ + + + + | Result panel 111 | + + + + + +-------+ + + | | 2022-06-01 | [facility] | 3.0 | (missing) | (missing) | | (unavailable | [facility] | | | + + + +-------+ + + + + | Result panel 112 | + + + + + +--------+ + + | | 2022-06-01 | [facility] | 5.47 | (missing) | (missing) | | (unavailable | [facility] | | | + + + +--------+ + + + + | Result panel 113 | + + + + + +--------+ + + | | 2022-06-01 | [facility] | 1.40 | (missing) | (missing) | | (unavailable | [facility] | | | + + + +--------+ + + + + | Result panel 114 | + + + + + +-------+ + + | | 2022-06-01 | [facility] | 0.6 | (missing) | (missing) | | (unavailable | 10:35:07 [facility] | | | | + + + +-------+ + + + + | Result panel 115 | + + + + + +------+ + + | | 2022-06-01 | [facility] | 34 | (missing) | (missing) | | (unavailable | 10:35:07 [facility] | | | | + + + +------+ + + + + | Result panel 116 | + + + + + +------+ + + | | 2022-06-01 | [facility] | 88 | (missing) | (missing) | | (unavailable | 10:35:07 [facility] | | | | + + + +------+ + + + + | Result panel 117 | + + + + + +-------+ + + | | 2022-06-01 | [facility] | 118 | (missing) | (missing) | | (unavailable | 10:35:07 [facility] | | | | + + + +-------+ + + + + | Result panel 118 | + + + + + +--------+ + + | | 2022-06-01 | [facility] | 16.5 | (missing) | (missing) | | (unavailable | 10:35:07 [facility] | | | | + + + +--------+ + + + + | Result panel 119 | + + + + + +--------+ + + | | 2022-06-01 | [facility] | 47.7 | (missing) | (missing) | | (unavailable | 10:35:07 [facility] | | | | + + + +--------+ + + + + | Result panel 120 | + + + + + +--------+ + + | | 2022-06-01 | [facility] | 87.1 | (missing) | (missing) | | (unavailable | 10:35:07 [facility] | | | | + + + +--------+ + + + + | Result panel 121 | + + + + + +--------+ + + | | 2022-06-01 | [facility] | 30.2 | (missing) | (missing) | | (unavailable | 10:35:07 [facility] | | | | + + + +--------+ + + + + | Result panel 122 | + + + + + +--------+ + + | | 2022-06-01 | [facility] | 34.6 | (missing) | (missing) | | (unavailable | 10:35:07 [facility] | | | | + + + +--------+ + + + + | Result panel 123 | + + + + + +--------+ + + | | 2022-06-01 | [facility] | 13.5 | (missing) | (missing) | | (unavailable | 10:35:07 [facility] | | | | + + + +--------+ + + Social History + + + + | date | description | facility | + + + + | 1997-01-20 00:00 | Current every day smoker | [facility] | + + + + | 1997-01-20 00:00 | Current every day smoker | [facility] | | | | | + + + + | 1997-01-20 00:00 | Current every day smoker | [facility] | | | | [facility] | + + + + | 2020-03-03 00:00 | Current every day smoker | [facility] | + + + + | 2020-03-03 00:00 | Current every day smoker | [facility] | | | | | + + + + | 2020-03-03 00:00 | Current every day smoker | [facility] | | | | [facility] | + + + + | 2021-07-02 00:00 | Unknown if ever smoked | [facility] | | | | | + + + + | 2021-10-01 00:00 | Unknown if ever smoked | [facility] | | | | | + + + + | 2022-04-15 00:00 | Unknown if ever smoked | [facility] | | | | | + + + + | 2022-10-14 00:00 | Unknown if ever smoked | [facility] | | | | | + + + + Vital Signs + + + + + | date | measurement | value | units | + + + + + | 2020-03-03 00:00 | BMI | 31.14 | kg/m2 | + + + + + | 2020-03-03 00:00 | BP_diastolic | 80 | mmHg | + + + + + | 2020-03-03 00:00 | BP_systolic | 120 | mmHg | + + + + + | 2020-03-03 00:00 | heart_rate | 64 | /min | + + + + + | 2020-03-03 00:00 | height_metric | 177.8 | cm | + + + + + | 2020-03-03 00:00 | height_standard | 70 | in | + + + + + | 2020-03-03 00:00 | weight_metric | 98.43 | kg | + + + + + | 2020-03-03 00:00 | weight_standard | 217 | lb | + + + + + | 2020-04-21 00:00 | BMI | 31.22 | kg/m2 | + + + + + | 2020-04-21 00:00 | BP_diastolic | 74 | mmHg | + + + + + | 2020-04-21 00:00 | BP_systolic | 118 | mmHg | + + + + + | 2020-04-21 00:00 | heart_rate | 66 | /min | + + + + + | 2020-04-21 00:00 | o2_saturation | 98 | % | + + + + + | 2020-04-21 00:00 | temperature_metric | 36.5 | C | | | | | | + + + + + | 2020-04-21 00:00 | | 97.7 | F | | | temperature_standar | | | | | d | | | + + + + + | 2020-04-21 00:00 | weight_metric | 98.7 | kg | + + + + + | 2020-04-21 00:00 | weight_standard | 217.6 | lb | + + + + + | 2020-05-19 00:00 | BMI | 31.71 | kg/m2 | + + + + + | 2020-05-19 00:00 | BP_diastolic | 83 | mmHg | + + + + + | 2020-05-19 00:00 | BP_systolic | 144 | mmHg | + + + + + | 2020-05-19 00:00 | heart_rate | 83 | /min | + + + + + | 2020-05-19 00:00 | o2_saturation | 97 | % | + + + + + | 2020-05-19 00:00 | respiration_rate | 16 | /min | + + + + + | 2020-05-19 00:00 | temperature_metric | 36.61 | C | | | | | | + + + + + | 2020-05-19 00:00 | | 97.9 | F | | | temperature_standar | | | | | d | | | + + + + + | 2020-05-19 00:00 | weight_metric | 100.25 | kg | + + + + + | 2020-05-19 00:00 | weight_standard | 221 | lb | + + + + + | 2021-07-02 00:00 | BMI | 33.6 | kg/m2 | + + + + + | 2021-07-02 00:00 | BP_diastolic | 82 | mmHg | + + + + + | 2021-07-02 00:00 | BP_systolic | 114 | mmHg | + + + + + | 2021-07-02 00:00 | BSA | 2.2 | m2 | + + + + + | 2021-07-02 00:00 | BSA | 2.23 | m2 | + + + + + | 2021-07-02 00:00 | heart_rate | 1|1| | completed | + + + + + | 2021-07-02 00:00 | heart_rate | 86 | /min | + + + + + | 2021-07-02 00:00 | height_metric | 177.8 | cm | + + + + + | 2021-07-02 00:00 | height_standard | 70 | in | + + + + + | 2021-07-02 00:00 | weight_metric | 106.14 | kg | + + + + + | 2021-07-02 00:00 | weight_standard | 234 | lb | + + + + + | 2021-10-01 00:00 | BMI | 18.9 | kg/m2 | + + + + + | 2021-10-01 00:00 | BSA | 1.7 | m2 | + + + + + | 2021-10-01 00:00 | BSA | 1.75 | m2 | + + + + + | 2021-10-01 00:00 | height_metric | 177.8 | cm | + + + + + | 2021-10-01 00:00 | height_standard | 70 | in | + + + + + | 2021-10-01 00:00 | weight_metric | 59.87 | kg | + + + + + | 2021-10-01 00:00 | weight_standard | 132 | lb | + + + + + | 2022-04-15 00:00 | BMI | 33.1 | 1 | + + + + + | 2022-04-15 00:00 | BP_diastolic | 80 | mmHg | + + + + + | 2022-04-15 00:00 | BP_systolic | 134 | mmHg | + + + + + | 2022-04-15 00:00 | BSA | 2.2 | 1 | + + + + + | 2022-04-15 00:00 | heart_rate | 1|1| | completed | + + + + + | 2022-04-15 00:00 | heart_rate | 92 | /min | + + + + + | 2022-04-15 00:00 | height_metric | 177.8 | cm | + + + + + | 2022-04-15 00:00 | height_standard | 70 | in | + + + + + | 2022-04-15 00:00 | weight_metric | 104.78 | kg | + + + + + | 2022-04-15 00:00 | weight_standard | 231 | lb | + + + + + | 2022-06-01 00:00 | BMI | 33.1 | kg/m2 | + + + + + | 2022-06-01 00:00 | height_metric | 177.8 | cm | + + + + + | 2022-06-01 00:00 | height_standard | 70 | in | + + + + + | 2022-06-01 00:00 | weight_metric | 104.54 | kg | + + + + + | 2022-06-01 00:00 | weight_standard | 230.47 | lb | + + + + + | 2022-06-07 00:00 | BP_diastolic | 67 | mmHg | + + + + + | 2022-06-07 00:00 | BP_systolic | 117 | mmHg | + + + + + | 2022-06-07 00:00 | heart_rate | 64 | /min | + + + + + | 2022-06-07 00:00 | o2_saturation | 96 | % | + + + + + | 2022-06-07 00:00 | respiration_rate | 16 | /min | + + + + + | 2022-06-07 00:00 | temperature_metric | 36.5 | C | | | | | | + + + + + | 2022-06-07 00:00 | | 97.7 | F | | | temperature_standar | | | | | d | | | + + + + + | 2022-10-14 00:00 | BMI | 33.1 | 1 | + + + + + | 2022-10-14 00:00 | BP_diastolic | 80 | mmHg | + + + + + | 2022-10-14 00:00 | BP_systolic | 140 | mmHg | + + + + + | 2022-10-14 00:00 | BSA | 2.2 | 1 | + + + + + | 2022-10-14 00:00 | heart_rate | 1|1| | completed | + + + + + | 2022-10-14 00:00 | heart_rate | 97 | /min | + + + + + | 2022-10-14 00:00 | height_metric | 177.8 | cm | + + + + + | 2022-10-14 00:00 | height_standard | 70 | in | + + + + + | 2022-10-14 00:00 | weight_metric | 104.78 | kg | + + + + + | 2022-10-14 00:00 | weight_standard | 231 | lb | + + + + +"
--- OUTSIDE RECORDS SUMMARY | ~2022-10-26 | XMS | Continuity of Care Document ---
Demographics + + + | Address | [address] | | | [place] [address] | + + + | Preferred Language | Unknown | + + + | Marital Status | Never | + + + | Presybeterian Affiliation | Unknown | + + + | Race | Unknown | + + + | Ethnic Group | Unknown | + + + Author + + + | Author | [facility] | + + + | Organization | [facility] | + + + | Address | [address] | | | [place] [address] | + + + | Phone | | + + + Care Team Providers + + + + | Care Large Animal Husbandry Technician Name | Role | Phone | + [...] date) | NO ALLERGY | [facility] | (no reaction) | (no severity) | | | INFORMATION ON | Medical Center | | | | | FILE | Hospital | | | + + + + + + | (no date) | NATALIZUMAB | [facility] | (no reaction) | (no severity) | | | | [facility] | | | | | | Hospital | | | + + + + + + | (no date) | NO KNOWN | [facility] | (no reaction) | (no severity) | | | ALLERGIES | [facility] | | | | [...] | 2022-06-07 00:00 | FINGOLIMOD HCL | [facility] | + + + + | 2021-06-24 00:00 | fingolimod 0.5 MG Oral | [facility] | | | Capsule [Gilenya] | | + + + + | 2021-12-14 00:00 | fingolimod 0.5 MG Oral | [facility] | | | Capsule [Gilenya] | | + + + + | 2022-01-10 00:00 | fingolimod 0.5 MG Oral | [facility] | | | Capsule [...] 00:00 | fingolimod 0.5 MG Oral | [facility] | | | Capsule [Gilenya] | | + + + + | 2021-06-14 00:00 | Tamsulosin HCl 0.4 MG Oral | [facility] | | | Capsule | | + + + + | 2021-07-02 00:00 | Tamsulosin HCl 0.4 MG Oral | [facility] | | | Capsule | | + + + + | 2021-07-08 00:00 | Tamsulosin HCl 0.4 MG Oral | [facility] | | | Capsule | | + + + + | 2022-01-10 00:00 | Tamsulosin HCl 0.4 MG Oral | [facility] | | | Capsule | | + + + + | 2022-07-04 00:00 | Tamsulosin HCl 0.4 MG Oral | [facility] | | | Capsule [...] 00:00 | Gilenya 0.5 MG Oral | [facility] | | | Capsule | | + + + + | 2022-04-21 00:00 | Gilenya 0.5 MG Oral | [facility] | | | Capsule | | + + + + | 2020-03-03 00:00 | methylprednisolone 1000 mg | [facility] | | | injection | [facility] | + + + + | 2020-03-03 00:00 | solu-medrol 1 gm injection | [facility] | | | | [facility] | + + + + | 2020-04-21 00:00 | 1000 ml sodium chloride 9 | [facility] | | | mg/ml injection | | + + + + | 2020-05-19 00:00 | 1000 ml sodium chloride 9 | [facility] | | | mg/ml injection | | + + + + | 2022-06-07 00:00 | BACLOFEN | [facility] | + + + + | 2022-04-21 00:00 | baclofen 10 MG Oral Tablet | [facility] | | | | | + + + + | 2022-04-21 00:00 | Baclofen 10 MG Oral Tablet | [facility] | | | | | + + + + | 2022-06-07 00:00 | GABAPENTIN | [facility] | + + + + | 2021-07-02 [...] | natalizumab 300 mg in 15 | [facility] | | | ml injection | | + + + + | 2020-01-21 00:00 | natalizumab 300 mg in 15 | [facility] | | | ml injection | | + + + + | 2020-01-21 00:00 | natalizumab 300 mg in 15 | [facility] | | | ml injection | [facility] | + + + + | 2020-01-21 00:00 | tysabri 300 mg per 15 ml | [facility] | | | injection | | + + + + | 2020-01-21 00:00 | tysabri 300 mg per 15 ml | [facility] | | | injection | | + + + + | 2020-01-21 00:00 | tysabri 300 mg per 15 ml | [facility] | | | injection | [facility] | + + + + | 2022-06-07 00:00 | TADALAFIL | [facility] | + + + + | 2021-06-14 [...] | 2022-06-07 00:00 | TAMSULOSIN HCL | [facility] | + + + + Problems + + + + | date | description | facility | + + + + | 2020-01-22 00:00 | multiple sclerosis | [facility] | | | (disorder) | | + + + + | 2020-01-22 00:00 | multiple sclerosis | [facility] | | | (disorder) | | + + + + | 2020-01-22 00:00 | multiple sclerosis | [facility] | | | (disorder) | [facility] | + + + + | 2020-01-22 00:00 | Multiple sclerosis | [facility] | + + + + | 2020-01-22 00:00 | Multiple sclerosis | [facility] | | | | | + + + + | 2020-01-22 00:00 | Multiple sclerosis | [facility] | | | | [facility] | + + + + | 2020-03-03 10:47:29 | Demyelinating diseases of | [facility] | | | the central nervous system | [facility] | | | (G35-G37) | | + + + + | 2020-03-03 10:47:29 | Hemiplegia, unspecified | [facility] | | | affecting left nondominant | [facility] | | | side | | + + + + | 2020-03-03 10:47:29 | Pain in right leg | [facility] | | | | [facility] | + + + + | 2020-03-03 10:47:29 | Pain in left leg | [facility] | | | | [facility] | + + + + | 2020-03-03 10:47:29 | Anesthesia of skin | [facility] | | | | [facility] | + + + + | 2020-03-03 10:47:29 | Paresthesia of skin | [facility] | | | | [facility] | + + + + | 2020-03-23 12:58:32 | Demyelinating diseases of | [facility] | | | the central nervous system | [facility] | | | (G35-G37) | | + + + + | 2020-04-21 00:00 | Demyelinating diseases of | [facility] | | | the central nervous system | [facility] | | | (G35-G37) | | + + + + | 2020-04-21 10:52:59 | Demyelinating diseases of | [facility] | | | the central nervous system | [facility] | | | (G35-G37) | | + + + + | 2020-05-19 12:18:47 | Demyelinating diseases of | [facility] | | | the central nervous system | [facility] | | | (G35-G37) | | + + + + | 2020-06-16 12:09:46 | Demyelinating diseases of | [facility] | | | the central nervous system | [facility] | | | (G35-G37) | | + + + + | 2020-07-14 12:19:49 | Demyelinating diseases of | [facility] | | | the central nervous system | [facility] | | | (G35-G37) | | + + + + | 2020-07-28 13:29:53 | Vitamin D deficiency, | [facility] | | | unspecified | [facility] | + + + + | 2020-07-28 13:29:53 | Demyelinating diseases of | [facility] | | | the central nervous system | [facility] | | | (G35-G37) | | + + + + | 2020-07-28 13:29:53 | Pain in unspecified joint | [facility] | | | | [facility] | + + + + | 2020-07-28 13:29:53 | Anesthesia of skin | [facility] | | | | [facility] | + + + + | 2020-07-28 13:29:53 | Paresthesia of skin | [facility] | | | | [facility] | + + + + | 2020-07-28 13:29:53 | Other fatigue | [facility] | | | | [facility] | + + + + | 2020-07-28 13:29:53 | Encounter for therapeutic | [facility] | | | drug level monitoring | [facility] | + + + + | 2020-07-28 13:29:53 | 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 | [facility] | + + + + | 2020-08-19 15:17:51 | Demyelinating diseases of | [facility] | | | the central nervous system | [facility] | | | (G35-G37) | | + + + + | 2020-08-19 15:17:51 | Headache, unspecified | [facility] | | | | [facility] | + + + + | 2020-08-19 15:17:51 | Other fatigue | [facility] | | | | [facility] | + + + + | 2021-07-02 [...] 00:00 | GUIDELINES FOR ORDERING #1 | [facility] | | | - BEACON | | + + + + | 2020-05-19 00:00 | GUIDELINES FOR ORDERING #1 | [facility] | | | - BEACON | | + + + + | 2020-04-21 00:00 | NURSING COMMUNICATION #2 - | [facility] | | | BEACON | | + + + + | 2020-05-19 00:00 | NURSING COMMUNICATION #2 - | [facility] | | | BEACON | | + + + + | 2020-04-21 00:00 | NURSING COMMUNICATION #3 - | [facility] | | | BEACON | [...] 00:00 | NURSING COMMUNICATION #4 - | [facility] | | | BEACON | | + + + + | 2020-04-21 00:00 | NURSING COMMUNICATION #5 - | [facility] | | | BEACON | | + + + + | 2020-05-19 00:00 | NURSING COMMUNICATION #5 - | [facility] | | | BEACON | | + + + + | 2020-04-21 00:00 | BASIC METABOLIC SET (NA, | [facility] | | | K, CL, TCO2, BUN, CR, GLU, | | | | CA) | | + + + + | 2020-05-19 00:00 | BASIC METABOLIC SET (NA, | [facility] | | | K, CL, TCO2, BUN, CR, GLU, | | | | CA) | | + + + + | 2020-04-21 00:00 | CBC WITH AUTO DIFF - OLP | [facility] | + + + + | 2020-05-19 00:00 | CBC WITH AUTO DIFF - OLP | [facility] | + + + + | 2020-04-21 00:00 | BASIC METABOLIC SET - OLP | [facility] | + + + + | 2020-05-19 00:00 | BASIC METABOLIC SET - OLP | [facility] | + + + + | 2020-04-21 00:00 | CBC W/ DIFF, REFLEX | [facility] | + + + + | 2020-05-19 00:00 | CBC W/ DIFF, REFLEX | [facility] | + + + + | 2020-04-21 00:00 | NURSING COMMUNICATION - | [facility] | | | HYPERSENSITIVITY/INFUSION | | | | REACTION #5 - BEACON | | + + + + | 2020-05-19 00:00 | NURSING COMMUNICATION - | [facility] | | | HYPERSENSITIVITY/INFUSION | | [...] 00:00 | Current every day smoker | [facility] | + + + + | 1997-01-20 00:00 | Current every day smoker | [facility] | | | | | + + + + | 1997-01-20 00:00 | Current every day smoker | [facility] | | | | [facility] | + + + + | 2020-03-03 00:00 | Current every day smoker | [facility] | + + + + | 2020-03-03 00:00 | Current every day smoker | [facility] | | | | | + + + + | 2020-03-03 00:00 | Current every day smoker | [facility] | | | | [facility] | + + + + | 2021-07-02 [...]
--- OUTSIDE RECORDS SUMMARY | 2022-10-26 13:16 | XMS ---
PreManage Notification: MANUEL SKAGGS Security Alcohol Law Enforcement Agent Events No recent Security Events currently on file CRITERIA MET - PDM CARE PROVIDERS [facility] 01/21/2020-Current PHONE: [phone] -Luis- Dentist: Senior Product Marketing Manager [facility] PHONE: [phone] Jazlyn has no Care Guidelines for this patient. Anastasiya VISIT COUNT (12 MO.) Abiola Brasher TOTAL 1 NOTE: Visits indicate total known visits. ED/UCC VISIT TRACKING (12 MO.) 10/26/2022 13:14 RODRIGUEZ Santillan OR TYPE: Emergency COMPLAINT: - RECTAL PROBLEM INPATIENT VISIT TRACKING (12 MO.) No inpatient visits to display in this time frame [email or web address]
[2022-10-26] MEDS ORDERED: ANECREAM5 GM TOP (14:03)
[2022-10-26 14:21] VITALS: BP 148/68
== END 2022-10-26 14:23 | disposition home or self-care (01) ==
LOC: ED 13:13
DX: K64.4 Residual hemorrhoidal skin tags (principal); F17.200 Nicotine dependence, unspecified, uncomplicated; Z88.0 Allergy status to penicillin; Z79.899 Other long term (current) drug therapy
CPT/HCPCS: 99282

== ENCOUNTER 2023-07-30 14:15 | Inpatient (IN) | payer OTHER ==
[~2023-07-30] VITALS: Ht 177.8 cm; Wt 98.8 kg
[~2023-07-30 14:15] MED LIST changes: +ANECREAM5 GM TOP
--- OUTSIDE RECORDS SUMMARY | 2023-07-30 14:18 | XMS ---
PreManage Notification: MANUEL SKAGGS Security Control Room Tender Events No recent Security Events currently on file CRITERIA MET - PDM CARE PROVIDERS -, [facility] Dentist: Communications Supervisor [facility] PHONE: [phone] -Luis- Dentist: Communications Supervisor Current [facility] PHONE: [phone] Jazlyn has no Care Guidelines for this patient. Anastasiya VISIT COUNT (12 MO.) 2 RODRIGUE[facility] TOTAL 2 NOTE: Visits indicate total known visits. ED/UCC VISIT TRACKING (12 MO.) 07/30/2023 14:16 [facility] [place] TYPE: Emergency COMPLAINT: - SOB, COUGH 10/26/2022 13:14 [facility] [place] TYPE: Emergency COMPLAINT: - RECTAL PROBLEM DIAGNOSES: - Allergy status to penicillin - Nicotine dependence, unspecified, uncomplicated - Other ferry terminal supervisor (current) drug therapy - Residual hemorrhoidal skin tags INPATIENT VISIT TRACKING (12 MO.) No inpatient visits to display in this time frame [email or web address]
[2023-07-30 14:43] LABS: BASOPHILS 0.7 % (0-2); EOSINOPHILS 0.4 % (0-6); HEMATOCRIT 45.3 % (35.0-50.0); HEMOGLOBIN 15.4 g/dL (12.0-18.0); LYMPHOCYTES 2.2 % (24-44); MCH 29.9 (27-36); MCV 87.9 fl (81-99); MONOCYTES 7.6 % (0-12); NEUTROPHILS 89.1 % (39-80); PLATELET COUNT 174 K/uL (140-440); RBC 5.15 M/ul (4.3-5.7); RDW 13.4 (10.5-15.0)
[2023-07-30] MEDS ORDERED: LACTATED RINGER'S 1,000 ML IV ONE (14:45)
[2023-07-30] MEDS ORDERED: ALBUTEROL/IPRATROPIUM 3 ML NEB INH ONE (14:45)
[2023-07-30] MEDS ORDERED: CEFTRIAXONE/SODIUM CHLORIDE 2 GM/100 ML PIGGYBACK IV ONE (14:45)
[2023-07-30 14:57] LABS: ALBUMIN/GLOBULIN RATIO 1.21 (1.1-2.4); ANION GAP 14.5 (7-21); BUN/CREATININE RATIO 14.28 (6.0-28.6); CALCIUM 8.6 mg/dL (8.5-10.1); CREATININE, SERUM 0.98 mg/dL (0.70-1.30); POTASSIUM 3.5 mmol/L (3.5-5.1); PROTEIN, TOTAL 7.3 g/dL (6.4-8.2)
[2023-07-30 15:00] LABS: LACTIC ACID, BLOOD 0.7 mmol/L (0.4-2.0)
[2023-07-30 15:28] LABS: INFLUENZA B NAA NEGATIVE (NEGATIVE); RESPIRATORY SYNCYTIAL VIR NAA NEGATIVE (NEGATIVE)
[2023-07-30] MEDS ORDERED: ALBUTEROL SULFATE 0.083% 3 ML VIAL INH ONE ×3 (16:15→19:30)
[2023-07-30] MEDS ORDERED: ACETAMINOPHEN 500 MG TAB PO ONE (16:15)
[2023-07-30] MEDS ORDERED: methylPREDNISolone SOD SUCC 125 MG/2 ML VIAL IV ONE (16:15)
[2023-07-30 16:47] LABS: BILIRUBIN, URINE NEGATIVE (negative); BLOOD/HGB, URINE NEGATIVE (Negative); KETONE, URINE SMALL (Negative); LEUK ESTERASE, URINE NEGATIVE (negative); NITRITE, URINE NEGATIVE (negative)
[2023-07-30] MEDS ORDERED: VENTOLIN HFA18 GM INH (18:51)
[2023-07-30] MEDS ORDERED: PREDNISONE20 MG PO (18:51)
[2023-07-30] MEDS ORDERED: ZITHROMAX250 MG PO (18:51)
[2023-07-30] MEDS ORDERED: ALBUTEROL2.5 MG/3 M INH (18:51)
[2023-07-30] MEDS ORDERED: AZITHROMYCIN 250 MG TAB PO ONE (19:00)
[2023-07-30 20:51] LABS: PH, VENOUS 7.381 (7.31-7.41)
[2023-07-30] MEDS ORDERED: ondansetron HCL 4 MG/2 ML VIAL IV PRN (23:00)
[2023-07-30] MEDS ORDERED: ACETAMINOPHEN 325 MG TAB PO PRN (23:00)
[2023-07-30] MEDS ORDERED: ALBUTEROL SULFATE 0.083% 3 ML VIAL INH PRN (23:00)
[2023-07-30 23:29] VITALS: BP 138/73
[2023-07-31] VITALS (10 sets, daily range): BP systolic 120–134; BP diastolic 62–78
--- NOTE | 2023-07-31 00:12 | NUR ---
2325- PT ADMITTED TO ROOM 114 FROM ED VIA GOURNEY. ALERT AND ORIENTED TO ALL. O2 5L OXYMASK, SOB WITH EXERTION NOTED. COOPERATIVE WTIH ADMIT QUESTIONS AND ASSESSMENT. ORIENTED TO ROOM AND HOSPITAL ROUTINE. STATED UNDERSTANDING. - LUNGS DIM T/O AND CRACKLES AT BASES, ON 5L OXYMASK, NOT ROUTINE. HAS BEEN VOIDING DARK COLORED URINE QS IN ED. NO C/O PAIN ON ADMIT. PLEASANT AND COOPERATIVE
--- NOTE | 2023-07-31 00:25 | NUR ---
voided 200cc dark colores, strong smelling urine. used urinal
--- NOTE | 2023-07-31 01:36 | NUR ---
Resting, eys closed, O2 5L Oxymask in place, CPOX on at bedside, sats 93%, tele#[address] SR reading, no s/sx distress
--- NOTE | 2023-07-31 02:17 | NUR ---
RESTING, EYES CLOSED, O2 5L OXYMASK, CPOX ON AT BEDSIDE. NO S/SX DISTRESS, AWAKENS EASILY, TELE#[address] SR, LEADS REPOSITIONED. MOIST DIAPHORETIC SKIN "I SWEAT AT NIGHT, SKIN DRIED, GOWN CHANGED. COOP WITH SECOND ASSESSMENT AND VITALS, GOES BACK TO SLEEP, DENIES C/O PAIN, TOLERATING LIQUIDS WELL
--- NOTE | 2023-07-31 04:04 | NUR ---
RESTING, EYES CLOSED, NO S/SX DITRESS, ON 5L OXYMASK O2. TURNS AND REPOSITIONS SELF, NO C/O SOB. CPOX ON AT BEDSIDE, SATS 92%
--- NOTE | 2023-07-31 04:30 | NUR ---
REPORT RECEIVED FROM OPAL ZHU. PT RESTING IN BED, EYES CLOSED. RR EVEN, UNLABORED. CALL LIGHT IN REACH.
[2023-07-31 05:30] LABS: BASOPHILS 0.2 % (0-2); EOSINOPHILS 0.1 % (0-6); HEMATOCRIT 43.8 % (35.0-50.0); HEMOGLOBIN 14.8 g/dL (12.0-18.0); LYMPHOCYTES 5.4 % (24-44); MCH 29.8 (27-36); MCHC 33.7 g/dl (30-36); MCV 88.5 fl (81-99); NEUTROPHILS 90.3 % (39-80); PLATELET COUNT 170 K/uL (140-440); RBC 4.95 M/ul (4.3-5.7); RDW 13.7 (10.5-15.0)
--- NOTE | 2023-07-31 05:30 | NUR ---
VS AND I & O COMPLETED. PT PLACED ON NC, CONTINUES AT 5L. IVs WNL. CPOX 94%, TELE NSR. PT STATES NO OTHER NEEDS. CALL LIGHT IN REACH.
[2023-07-31 05:52] LABS: ALBUMIN 3.5 g/dL (3.4-5.0); ALBUMIN/GLOBULIN RATIO 1.06 (1.1-2.4); ANION GAP 13.9 (7-21); BILIRUBIN, TOTAL 0.4 ng/dL (0.2-1.0); BUN/CREATININE RATIO 17.04 (6.0-28.6); CALCIUM 8.6 mg/dL (8.5-10.1); CREATININE, SERUM 0.88 mg/dL (0.70-1.30); MAGNESIUM 2.2 mg/dL (1.8-2.4); POTASSIUM 3.9 mmol/L (3.5-5.1); PROTEIN, TOTAL 6.8 g/dL (6.4-8.2)
[2023-07-31] MEDS ORDERED: methylPREDNISolone SOD SUCC 125 MG/2 ML VIAL IV SCH (06:00)
--- NOTE | 2023-07-31 06:30 | NUR ---
PT RESTING IN BED, WATCHING TV. NC @ 5L, CPOX 93%. TELE NSR @ 72. CALL LIGHT IN REACH.
--- NOTE | 2023-07-31 07:10 | NUR ---
REPORT RECEIVED FROM BILLING SPECIALIST RN BRAVO. PATIENT IS LYING IN BED WITH EYES CLOSED AND RESPIRATIONS ARE EVEN AND UNLABORED. CALL LIGHT AND PERSONAL BELONGINGS ARE WITHIN REACH.
[2023-07-31] MEDS ORDERED: ALBUTEROL/IPRATROPIUM 3 ML NEB INH SCH ×2 (08:00)
--- NOTE | 2023-07-31 08:45 | NUR ---
0900 MEDICATIONS ADMINISTERED PER THE EMAR. FULL ASSESSMENT COMPLETE AND DOCUMENTED IN THE CHART. PATIENT IS ALERT AND ORIENTED TIMES FOUR. PATIENT IS ON 5 L NASAL CANNULA WITH A CPOX AT THE BEDSIDE. UPPER LUNG LOBES ARE DIMINISHED WITH EXPIRATORY WHEEZES BILATERALLY. BILATERAL LOWER LUNG LOBES WITH FINE CRACKLES AND EXPIRATORY WHEEZES. CARDIAC WITH NORMAL S1 AND S2 ON AUSCULTATION. PATIENT IS ON TELEMETRY NUMBER 9 AND IS IN NORMAL SINUS RHYTHM. HR IS 82. RADIAL PULSES ARE STRONG BILATERALLY. SENSATION INTACT WITH NO COMPLAINTS OF NUMBNESS AND TINGLING. WEAKNESS NOTED OCCASSIONALLY WITH MS. BOWEL TONES ARE ACTIVE IN ALL FOUR QUADRANTS. PATIENT IS ON A REGULAR DIET AND THEIR LAST BOWEL MOVEMENT WAS 07/30/23. IV SITES FLUSHED WITH 10 ML NORMAL SALINE AND BOTH IV SITES ARE SALINE LOCKED. PATIENT WITH NO COMPLAINTS OF PAIN OR SOB AT THIS TIME. BREAKFAST TRAY REMOVED. FRESH COFFEE AND ICE WATER AT THE PATIENTS BEDSIDE. PATIENT STATED NO FURTHER NEEDS AT THIS TIME. CALL LIGHT AND PERSONAL BELONGINGS ARE WITHIN REACH.
[2023-07-31] MEDS ORDERED: ENOXAPARIN SODIUM 40 MG/0.4 ML SYR SUB-Q SCH (09:00)
[2023-07-31] MEDS ORDERED: CEFTRIAXONE/SODIUM CHLORIDE 1 GM/100 ML PIGGYBACK IV SCH (09:00)
[2023-07-31] MEDS ORDERED: AZITHROMYCIN 250 MG TAB PO SCH (09:00)
[2023-07-31] MEDS ORDERED: CEFTRIAXONE/SODIUM CHLORIDE 2 GM/100 ML PIGGYBACK IV SCH (09:00)
[2023-07-31] MEDS ORDERED: AZITHROMYCIN 500 MG in DEXTROSE 5% 250 ML IV SCH (09:00)
[2023-07-31] MEDS ORDERED: FINGOLIMOD 0.5 MG PO SCH (09:48)
[2023-07-31] MEDS ORDERED: GABAPENTIN 300 MG CAP PO SCH (09:49)
[2023-07-31] MEDS ORDERED: TAMSULOSIN HCL 0.4 MG CAP PO SCH (09:49)
[2023-07-31] MEDS ORDERED: BACLOFEN 10 MG TAB PO SCH (09:49)
[2023-07-31] MEDS ORDERED: predniSONE 20 MG TAB PO SCH (12:00)
[2023-07-31] MEDS ORDERED: PHARMACY RENAL DOSE ADJUSTMENT 1 DOSE MISC PO SCH (12:00)
--- NOTE | 2023-07-31 12:15 | NUR ---
PATIENT ALERT AND ORIENTED IN BED. STATES HE LIVES ALONE IN HOME. HAS "A COUPLE OF STAIRS." NO DIFFICULTY WITH STAIRS. DENIES ANY DME. CONTINUES ABLE TO DRIVE. DENIES ANY HARDSHIP PAYING UTILITIES OR FOR FOOD OR MEDICATIONS. DENIES ANY NEEDS AT HOME AT THIS TIME. VERIFIED DEMOGRAPHICS WITH PATIENT.
--- NOTE | 2023-07-31 13:00 | NUR ---
medications reconciled using pharmacy records and patient interview. Patient will be using his own fingolimod 0.5mg capsules while inpatient
--- NOTE | 2023-07-31 13:45 | NUR ---
UR CLINICAL REVIEW: [facility] ODS EOCCO OBS MADE INPT AFTER REVIEW AND DISCUSSION WITH 07/31/23 @ 0830 YES ORDERS MATCH CLINICAL SUBMITTED FOR REVIEW DISCHARGE TO HOME WHEN STABLE 05/03/23
--- NOTE | 2023-07-31 15:11 | NUR ---
PATIENT IS SITTING UPRIGHT IN BED. PATIENT IS ON 5 L NASAL CANNULA WITH THE CPOX AT THE BEDSIDE. LUNG SOUNDS WITH EXPIRATORY WHEEZES IN ALL LUNG DOAN BILATERALLY. PATIENT WITH A MOIST PRODUCTIVE COUGH. CARDIAC WITH NORMAL S1 AND S2 ON AUSCULTATION. PATIENT IS ON TELEMETRY NUMBER 9 AND THE HR IS 89. RADIAL PULSES ARE STRONG BILATERALLY. PATIENT WITH NO COMPLAINTS OF PAIN OR SHORTNESS OF BREATH AT THIS TIME. PATIENT MOM IS AT THE BEDSIDE. FRESH CUP OF ICE WATER IS GIVEN TO THE PATIENT AND A CUP OF ICE WATER TO HIS MOTHER. PATIENT AND FAMILY STATED NO FURTHER NEEDS AT THIS TIME. CALL LIGHT AND PERSONAL BELONGINGS ARE WITHIN REACH.
--- NOTE | 2023-07-31 15:51 | NUR ---
PATIENT IS WORKING WITH RT AT THIS TIME.
--- NOTE | 2023-07-31 17:22 | NUR ---
NEW CPOX FINGER PROBE PLACED ON THE PATIENT PER REQUEST. PATIENT IS ON 5 L NC AND HIS SPO2 WAS 91%. DINNER TRAY REMOVED AT THIS TIME. PATIENT GIVEN A FRESH CUP OF ICE WATER. PATIENT STATED NO FURTHER NEEDS AT THIS TIME, CALL LIGHT AND PERSONAL BLEONGINGS ARE WITHIN REACH.
--- NOTE | 2023-07-31 19:10 | NUR ---
REPORT RECEIVED FROM OFFGOING RNVIVIANA.
[2023-07-31] MEDS ORDERED: ACETAMINOPHEN 500 MG TAB PO PRN (20:15)
--- NOTE | 2023-07-31 20:38 | NUR ---
PT ASSESSMENT COMPLETE. PT RESTING IN BED WITH HIS PARENTS AT BEDSIDE. PT RATES HEADACHE, LEG SORENESS, AND BACK PAIN /10. PRN ADMINISTERED. SEE EMAR. TELE # [address], SR, HR 70'S-80'S. O2 IN PLACE AT 5 LPM VIA NC. PT REPORTS NASAL DRYNESS, HUMIDIFICATION APPLIED. CPOX AT BEDSIDE SAO2 90'S. LUNGS WITH EXPIRATORY WHEEZES THROUHGOUT. PT WITH PRODUCTIVE COUGH THROUHOUT ASSESSMENT. PT REPORTS SPUTUM TO BE CLEAR TO YELLOW IN COLOR. IV FLUSHED X 2 WITH 5ML NS. WNL. SL. VS OBTAINED. WNL. PT DENIES FURTHER NEEDS AT THIS TIME. CALL LIGHT IN REACH.
--- NOTE | 2023-07-31 23:00 | NUR ---
PT ROUNDING. PT RESTING IN BED AWAKE, LOOKING AT CELL PHONE. PT STATES THAT HUMIDIFIER ON O2 HAS HELPED WITH FEELING OF DRY NOSE. DENIES NEEDS AT THIS TIME. CALL LIGHT IN REACH.
--- NOTE | 2023-08-01 00:10 | NUR ---
PT UTIZLIES CALL LIGHT, REQUESTS ICE WATER, PROVDIDED. PT DENIES FURTHER NEEDS AT THIS TIME. CALL LIGHT IN REACH.
[2023-08-01 02:10] VITALS: BP 98/52
--- NOTE | 2023-08-01 02:19 | NUR ---
PT ASSESSMENT COMPLETE. PT RESTING IN BED AWAKE. DENIES PAIN, NAUSEA, OR SOB. TELE # [address], SR, HR 70'S. LUNG SOUNDS CLEAR THROUGHOUT. PT REPORTS CONINTUED OCCASIONAL COUGH, NOT NOTED DURING ASSESSMENT. O2 @ 3LPM. PULSE OX AT BEDSIDE. SA02 93%. VS OBTAINED. WNL. IV SL. PT DENIES NEEDS AT THIS TIME. CALL LIGHT IN REACH.
--- NOTE | 2023-08-01 03:28 | NUR ---
PT ROUNDING. PT RESTING IN BED, LYING ON L SIDE. RESPIRATIONS EVEN AND UNLABORED. SA02 96, HR 67. CALL LIGHT IN REACH.
[2023-08-01 04:01] LABS: PROCALCITONIN 0.02 ng/mL (())
[2023-08-01 05:24] LABS: BASOPHILS 0.8 % (0-2); EOSINOPHILS 0.1 % (0-6); HEMATOCRIT 43.9 % (35.0-50.0); HEMOGLOBIN 14.7 g/dL (12.0-18.0); LYMPHOCYTES 3.7 % (24-44); MCH 29.7 (27-36); MCHC 33.4 g/dl (30-36); MCV 88.9 fl (81-99); NEUTROPHILS 87.4 % (39-80); PLATELET COUNT 185 K/uL (140-440); RBC 4.93 M/ul (4.3-5.7); RDW 13.7 (10.5-15.0)
[2023-08-01 05:33] LABS: ANION GAP 13.3 (7-21); BUN/CREATININE RATIO 14.86 (6.0-28.6); CALCIUM 8.3 mg/dL (8.5-10.1); CREATININE, SERUM 0.74 mg/dL (0.70-1.30); POTASSIUM 4.3 mmol/L (3.5-5.1)
[2023-08-01 06:24] VITALS: BP 117/77
--- NOTE | 2023-08-01 06:26 | NUR ---
PT ROUNDING. PT SITTING UP IN BED LOOKING AT CELL PHONE. PT REQUESTS WATER AND COFFEE, PROVIDED. VS OBTAINED, WNL. O2 96% ON 3 LPM, TITRATED TO 2 LPM, SAO2 94%. PT DENIES FURTHER NEEDS AT THIS TIME. CALL LIGHT IN REACH.
--- NOTE | 2023-08-01 07:31 | NUR ---
PT RESTING IN BED WATCHING TV AT TIME OF SHIFT REPORT. 02 ON AT 2 LPM NC SATS 97% 02 DC'D FRESH COFFEE AND H20 TO BEDSIDE CALL LIGHT IN REACH. PT AGREES HE IS COMFORTABLE DENIES NEED AT THIS TIME
--- NOTE | 2023-08-01 08:02 | NUR ---
SATS REMAIN MED 90's ON ROOM AIR. PT UP TO THE CHAIR FOR MORNING MEAL.
--- NOTE | 2023-08-01 08:43 | NUR ---
PT CONTINUES UP IN THE CHAIR, FINISHED WITH MORNING MEAL. SATS HAVE DIPPED TO 88% ON RA 02 REPLACED AT 1 LPM SATS CONTINUE HIGH 80'S 02 2L NC SATS RECOVER TO LOW 90'S. PT DENIES SOB. PT HAS A HOARSE DRY SOUNDING COUGH PRODUCING SMALL AMOUNT OF SPUTUM
[2023-08-01 09:34] LABS: STREPTOCOCCUS PNEUMONIAE AG,UR Negative (Negative)
[2023-08-01 09:48] VITALS: BP 118/72
--- NOTE | 2023-08-01 11:10 | NUR ---
SPOKE TO PATIENT ABOUT THE DC PLAN.PATIENT PLANS TO GO HOME WHEN MEDICALLY STABLE. PATIENT HAS A MOTHER THAT WE HELP NEEDED.
--- NOTE | 2023-08-01 13:01 | NUR ---
ATTEMPTED TO VISIT DURING SPIRITUAL CARE ROUNDS. PT RECEIVING NURSING CARE. DID NOT INTERRUPT. PROVIDED PRAYER.
--- NOTE | 2023-08-01 13:08 | NUR ---
PATIENT IN BED AT THIS TIME. FRESH WATER GIVEN AT THIS TIME. CALL LIGHT WITHIN REACH, NO FURTHER NEEDS AT THIS TIME.
--- NOTE | 2023-08-01 13:24 | NUR ---
THE PATIENT MAY STAY 1 MORE NIGHT. THE PATIENT IS ON O2 AT 1 LITER. SPOKE TO THE CHARGE NURSE WHO WILL SPEAK TO MD FOR AN O2 QUALIFIER TO BE OBTAINED.
[2023-08-01] MEDS ORDERED: PREDNISONE20 MG PO (13:28)
[2023-08-01 13:31] VITALS: BP 114/69
--- NOTE | 2023-08-01 14:31 | NUR ---
PT AWAKE AFTER RESTING EYES CLOSED FOR AWHILE. STATES HE FEELS PRETTY GOOD. AFTERNOON ASSESSMENT COMPLETE, THOUGH LUNGS ARE STILL WHEEZY THEY ARE IMPROVED OVER THIS MORNING. SATS 94% ON 2 L02
--- NOTE | 2023-08-01 15:09 | NUR ---
PT HAS BEEN ON ROOM AIR SINCE 1430 SATS ARE 92% AT REST. HE DENIES QUESTIONS OR CONCERNS MOTHER IS PRESENT
[2023-08-02] MEDS ORDERED: FINGOLIMOD 0.5 MG PO SCH (09:00)
--- NOTE | 2023-08-02 18:24 | EKG ---
[facility] [address] [place] [address] Signed Normal sinus rhythm Normal ECG When compared with ECG of 01-JUN-2022 09:29, No significant change was found Confirmed by Bree Jaramillo MD ([id number]) on 08/02/2023 6:24:05 PM Electronically Signed By: BREE JARAMILLO 08/02/231823 PATIENT NAME: MANUEL SKAGGS Electrocardiogram DATE OF : 84 PHYSICIAN: BREE JARAMILLO REPORT #: [id number] REPORT IS CONFIDENTIAL AND NOT TO BE RELEASED WITHOUT AUTHORIZATION
== END 2023-08-01 15:25 | disposition home or self-care (01) | DRG 189 ==
LOC: ED 14:15 → MS 14:17
PROVIDERS: Emergency Medicine; Family Medicine; ADMIT Internal Medicine; ATTEND Internal Medicine
DX: J96.01 Acute respiratory failure with hypoxia (principal); J44.1 Chronic obstructive pulmonary disease with (acute) exacerbation; B34.9 Viral infection, unspecified; F17.210 Nicotine dependence, cigarettes, uncomplicated; G35 Multiple sclerosis; Z90.89 Acquired absence of other organs; Z88.0 Allergy status to penicillin; Z79.899 Other long term (current) drug therapy
CPT/HCPCS: 36415; 71045; 71250; 80048; 80053; 81003; 82803; 83605; 83735; 83880; 84484; 85025; 85379; 85651; 86140; 87502; 87899; 93005; 93010; 94640; 94668; 94760; 94761; 94762; 96372; 96376; 99406; A9270; G0378; J0696; J1650; J2919; J7121; J7512; U0002